=== PATIENT | female | born 1985 | race Caucasian/White ===

== ENCOUNTER → 2016-09-09 | Outpatient (CLI) | payer OTHER ==
[~2016-09-09] MED LIST: ISOVUE-370 76% 100ML VIAL (Q9967) As Ordered ONE
== END ==
LOC: M RAD 13:29
PROVIDERS: ATTEND Physician Assistant
DX: R09.89 Other specified symptoms and signs involving the circulatory and respiratory systems (principal)

== ENCOUNTER → 2016-09-14 | Outpatient (CLI) | payer OTHER ==
[2016-09-14 18:36] LABS: BASO % 0.4 % (0.0-1.0); EOS # 0.2 K/mm3 (0.0-0.50); EOS % 1.3 % (0.0-3.0); LARGE UNSTAINED CELL # 0.3 K/mm3 (0.0-0.4); LARGE UNSTAINED CELL % 1.9 % (0.0-4.0); LYMPH # 4.4 K/mm3 (1.5-4.5); LYMPH % 29.8 % (24.0-44.0); MEAN CORPUSCULAR HEMOGLOBIN 29.2 pg (27.0-33.0); MEAN CORPUSCULAR HGB CONC 32.8 g/dl (32.0-36.5); MEAN CORPUSCULAR VOLUME 89.1 fl (80.0-96.0); MONO # 0.5 K/mm3 (0.0-0.8); MONO % 3.4 % (0.0-5.0); NEUTROPHILS # 8.7 K/mm3 (1.8-7.7); NEUTROPHILS % 63.3 % (36.0-66.0); PLATELET COUNT, AUTOMATED 306 k/mm3 (150-450); RED CELL DISTRIBUTION WIDTH 12.5 % (11.5-14.5); WHITE BLOOD COUNT 13.8 K/mm3 (4.0-10.0)
[2016-09-14 18:50] LABS: ALBUMIN 3.6 GM/DL (3.2-5.2); ALBUMIN/GLOBULIN RATIO 0.84 (1.00-1.93); ALKALINE PHOSPHATASE 61 U/L (45-117); ALT/SGPT 20 U/L (12-78); ANION GAP 9 MEQ/L (8-16); AST/SGOT 16 U/L (15-37); BILIRUBIN,TOTAL 0.3 MG/DL (0.2-1.0); BLOOD UREA NITROGEN 10 MG/DL (7-18); CALCIUM LEVEL 9.5 MG/DL (8.5-10.1); CARBON DIOXIDE LEVEL 25 MEQ/L (21-32); CHLORIDE LEVEL 105 MEQ/L (98-107); CREATININE FOR GFR 1.04 MG/DL (0.55-1.02); GLOMERULAR FILTRATION RATE > 60.0 (>60); GLUCOSE, FASTING 86 MG/DL (70-105); POTASSIUM SERUM 4.2 MEQ/L (3.5-5.1); SODIUM LEVEL 139 MEQ/L (136-145); TOTAL PROTEIN 7.9 GM/DL (6.4-8.2)
== END ==
LOC: M LAB 16:50
PROVIDERS: ATTEND Internal Medicine Gastroenterology
DX: K52.89 Other specified noninfective gastroenteritis and colitis (principal)

== ENCOUNTER → 2016-09-16 | Outpatient (REF) | payer OTHER ==
[~2016-09-16] MED LIST changes: +CLON1TAB PO; +CYCL10TA PO; +CYMB60CA3 PO; -ISOVUE-370 76% 100ML VIAL (Q9967) As Ordered ONE; +LEVO100T5 PO; +LISI-538 PO; +LITH300C PO; +LYRI75CA PO; +NECO1TAB9 PO; +PERC10TA17 PO; +PROP60TA14 PO; +SERO1TAB PO; +XANA1TAB2 PO; +ZOFR20TA PO
== END ==
LOC: M LAB REF 09:29
PROVIDERS: ATTEND Internal Medicine Gastroenterology
DX: R19.8 Other specified symptoms and signs involving the digestive system and abdomen (principal)

== ENCOUNTER → 2016-09-20 | Outpatient (CLI) | payer OTHER, SELFPAY ==
[~2016-09-20] MED LIST changes: +E-Z PAQUE 60% w/v SUSP 355ML BOTTLE As Ordered ONE
--- NOTE | 2016-09-20 11:21 | REP ---
SMALL BOWEL FOLLOW-THROUGH WITH KUB: 09/20/2016 COMPARISON: CT abdomen pelvis 02/18/2016, 07/10/2014 from [facility] in [place]. CLINICAL HISTORY: Crohn's disease for reassessment. FINDINGS: Insulation Estimator film shows SI joints symmetric and normal in appearance. Bones unremarkable. Gas pattern nonspecific. No abnormal calcifications. Oral barium mixture was utilized for single contrast technique. The small bowel loops are contrast filled. At the 10-minute image, barium had reached the region of the distal ileum. There is normal fold thickness throughout the jejunum and no dilated loops, angulated or strictured loops noted in the jejunum. Loops of distal ileum shows slight narrowing, the peristalsis was observed. The terminal ileum shows some narrowing without tight stricture. I see no angulated loops or loop separation. No sign of any fistula tracts between bowel loops. IMPRESSION: 1. Some narrowing terminal ileum without definite loop separation, fold thickness abnormality, nodularity or mass. Transit time to the cecum just under 40 minutes. No evidence of fistulous tract formation. Fluoroscopy time: 2 minutes 5 seconds. Signed by Zachary Han MD 09/20/2016 05:05 P
== END ==
LOC: M RAD 09:16
PROVIDERS: ATTEND Internal Medicine Gastroenterology
DX: K52.89 Other specified noninfective gastroenteritis and colitis (principal)

== ENCOUNTER → 2016-10-06 | Outpatient (CLI) | payer OTHER ==
[~2016-10-06] VITALS: Ht 157.5 cm; Wt 99.8 kg
[~2016-10-06] MED LIST changes: -E-Z PAQUE 60% w/v SUSP 355ML BOTTLE As Ordered ONE; +NS 1,000 ML IV SCH; +PROPOFOL 200 MG/20 ML VIAL As Ordered ONE
[2016-10-06 09:13] VITALS: BP 138/77
--- NOTE | 2016-10-06 10:00 | ROOR ---
Patient Name: Lynn Hedrick Procedure Date: 10/06/2016 9:30 AM Date of : 1985 Age: 31 Room: [id number] Gender: Female Note Status: Finalized Procedure: Colonoscopy Indications: Crohn's disease of the colon, Follow-up of Crohn's disease of the colon, Assess therapeutic response to therapy of Crohn's disease of the colon (on Humira) Providers: Wali FORD MD Referring MD: Jennifer SHI DO Requesting Provider: Medicines: Monitored Anesthesia Care Complications: No immediate complications. Procedure: Pre-Anesthesia Assessment: - The heart rate, respiratory rate, oxygen saturations, blood pressure, adequacy of pulmonary ventilation, and response to care were monitored throughout the procedure. The Colonoscope was introduced through the anus and advanced to 10 cm into the ileum. The colonoscopy was performed without difficulty. The patient tolerated the procedure well. The quality of the bowel preparation was good. Findings: The perianal and digital rectal examinations were normal. (EXAM: Complete, PREP:Adequate) The terminal ileum appeared normal. A diminutive polyp was found in the splenic flexure. The polyp was sessile. The polyp was removed with a jumbo cold forceps. Resection and retrieval were complete. The exam was otherwise without abnormality on direct and retroflexion views. Biopsies were taken with a cold forceps in the rectum, in the sigmoid colon, in the descending colon, in the transverse colon, in the ascending colon and in the terminal ileum for histology. Impression: - The examined portion of the ileum was normal. - One diminutive polyp at the splenic flexure, removed with a jumbo cold forceps. Resected and retrieved. - The examination was otherwise normal on direct and retroflexion views. - Biopsies were taken with a cold forceps for histology in the rectum, in the sigmoid colon, in the descending colon, in the transverse colon, in the ascending colon and in the terminal ileum. - No active Crohn's disease. Crohn's disease in remission. Recommendation: - Return to my office at appointment to be scheduled. - Continue present medications. Continue Humira (adalimumab) at 20 mg per 0.4 mL subcutaneously every other week. Wali Ford MD Wali FORD MD 10/06/2016 9:59:51 AM This report has been signed electronically. Number of Addenda: 0 Note Initiated On: 10/06/2016 9:30 AM Estimated Blood Loss: Estimated blood loss: none.
== END | disposition home or self-care (01) ==
LOC: M OPP 09:02
PROVIDERS: ATTEND Internal Medicine Gastroenterology
DX: K50.10 Crohn's disease of large intestine without complications (principal); D12.3 Benign neoplasm of transverse colon; I10 Essential (primary) hypertension; K21.9 Gastro-esophageal reflux disease without esophagitis; M19.90 Unspecified osteoarthritis, unspecified site; M79.7 Fibromyalgia; E06.3 Autoimmune thyroiditis; F33.9 Major depressive disorder, recurrent, unspecified; F43.10 Post-traumatic stress disorder, unspecified; F17.210 Nicotine dependence, cigarettes, uncomplicated; Z79.899 Other long term (current) drug therapy; Z79.891 Long term (current) use of opiate analgesic; Z88.8 Allergy status to other drugs, medicaments and biological substances; Z88.0 Allergy status to penicillin

== ENCOUNTER → 2016-10-11 | Outpatient (CLI) | payer OTHER ==
[~2016-10-11] MED LIST changes: -NS 1,000 ML IV SCH; -PROPOFOL 200 MG/20 ML VIAL As Ordered ONE
== END ==
LOC: M LAB 09:50
PROVIDERS: ATTEND Internal Medicine Gastroenterology
DX: K52.89 Other specified noninfective gastroenteritis and colitis (principal)

== ENCOUNTER 2016-11-09 12:04 | Emergency (ER) | payer OTHER ==
[~2016-11-09] VITALS: Ht 157.5 cm; Wt 100.2 kg
[~2016-11-09 12:04] MED LIST changes: -HUMI40KI2 SQ; -NORCOTAB PO
[2016-11-09 12:05] VITALS: BP 137/98
[2016-11-09] MEDS ORDERED: HUMI40KI2 SQ (12:14)
[2016-11-09] MEDS ORDERED: NORCOTAB PO (13:48)
[2016-11-28] MEDS ORDERED: LIBR5CAP PO (13:59)
[2016-11-28] MEDS ORDERED: AMBI10TA PO (13:59)
[2016-11-28] MEDS ORDERED: ZOMI5TAB2 PO (13:59)
[2016-11-28] MEDS ORDERED: NECO1TAB PO (13:59)
[2016-11-28] MEDS ORDERED: PANT40TA2 PO (13:59)
[2016-11-28] MEDS ORDERED: BENT10CA PO (13:59)
[2016-11-28] MEDS ORDERED: VITA50003 PO (13:59)
[2016-11-28] MEDS ORDERED: VITA500046 PO (13:59)
[2016-11-28] MEDS ORDERED: BENT20TA PO (13:59)
== END 2016-11-09 13:55 | disposition home or self-care (01) ==
LOC: M ED 13:20
DX: N83.292 Other ovarian cyst, left side (principal); R10.32 Left lower quadrant pain; D39.12 Neoplasm of uncertain behavior of left ovary; F32.9 Major depressive disorder, single episode, unspecified; I10 Essential (primary) hypertension; M54.5 Low back pain; F41.9 Anxiety disorder, unspecified; K50.919 Crohn's disease, unspecified, with unspecified complications; Z79.899 Other long term (current) drug therapy; Z88.0 Allergy status to penicillin; Z88.1 Allergy status to other antibiotic agents

== ENCOUNTER → 2016-11-09 | Outpatient (CLI) | payer OTHER ==
[~2016-11-09] MED LIST changes: +HUMI40KI2 SQ; +NORCOTAB PO
--- NOTE | 2016-11-09 12:11 | REP ---
Clinical: Teratoma. Comparison: CT dated 02/18/2016 . Technique: Transabdominal pelvic ultrasound followed by transvaginal examination for better evaluation of the endometrium and adnexa with color Doppler evaluation of the ovaries. Findings: Bladder is unremarkable and measures 10.5 x 4.7 x 9.5 cm . Heterogeneous anteverted uterus measures 7.0 x 3.8 x 4.1 cm . The endometrial complex measures 9.5 mm thickness. No discrete uterine or endometrial abnormalities are appreciated. Incidental note of multiple Nabothian cysts in the cervix. Bilateral ovaries are normal in appearance and vascularity without evidence for torsion. Right ovary measures 2.6 x 1.2 x 1.8 cm. Left ovary measures 5.3 x 4.5 x 5.3 cm. 4.3 x 3.8 x 3.7 cm fat containing mass in the left adnexa confirmed by prior CT is compatible with dermoid cyst/teratoma. No pelvic fluid. Impression: 1. Left adnexal teratoma measures 4.3 cm maximal diameter. Signed by Porter Shaffer MD 11/09/2016 12:03 P
== END ==
LOC: M RAD 10:49
PROVIDERS: ATTEND Obstetrics & Gynecology
DX: D39.12 Neoplasm of uncertain behavior of left ovary (principal)

== ENCOUNTER → 2016-11-09 | Outpatient (CLI) | payer OTHER ==
[2016-11-09 12:21] LABS: BASO # 0.1 K/mm3 (0.0-0.2); BASO % 0.6 % (0.0-1.0); EOS # 0.2 K/mm3 (0.0-0.50); EOS % 1.6 % (0.0-3.0); LARGE UNSTAINED CELL # 0.4 K/mm3 (0.0-0.4); LARGE UNSTAINED CELL % 2.9 % (0.0-4.0); LYMPH # 5.6 K/mm3 (1.5-4.5); LYMPH % 39.8 % (24.0-44.0); MEAN CORPUSCULAR HEMOGLOBIN 28.1 pg (27.0-33.0); MEAN CORPUSCULAR HGB CONC 32.6 g/dl (32.0-36.5); MEAN CORPUSCULAR VOLUME 86.2 fl (80.0-96.0); MONO # 0.4 K/mm3 (0.0-0.8); MONO % 3.4 % (0.0-5.0); NEUTROPHILS # 6.8 K/mm3 (1.8-7.7); NEUTROPHILS % 51.7 % (36.0-66.0); PLATELET COUNT, AUTOMATED 319 k/mm3 (150-450); RED CELL DISTRIBUTION WIDTH 12.8 % (11.5-14.5)
[2016-11-09 12:38] LABS: WHITE BLOOD COUNT 13.1 K/mm3 (4.0-10.0)
[2016-11-09 12:55] LABS: ALBUMIN 3.5 GM/DL (3.2-5.2); ALBUMIN/GLOBULIN RATIO 0.76 (1.00-1.93); ALKALINE PHOSPHATASE 72 U/L (45-117); ALT/SGPT 19 U/L (12-78); ANION GAP 8 MEQ/L (8-16); AST/SGOT 15 U/L (15-37); BILIRUBIN,TOTAL 0.5 MG/DL (0.2-1.0); BLOOD UREA NITROGEN 11 MG/DL (7-18); CALCIUM LEVEL 9.3 MG/DL (8.5-10.1); CARBON DIOXIDE LEVEL 26 MEQ/L (21-32); CHLORIDE LEVEL 101 MEQ/L (98-107); CREATININE FOR GFR 0.95 MG/DL (0.55-1.02); FREE T4 1.12 NG/DL (0.76-1.46); GLOMERULAR FILTRATION RATE > 60.0 (>60); GLUCOSE, FASTING 78 MG/DL (70-105); POTASSIUM SERUM 4.5 MEQ/L (3.5-5.1); SODIUM LEVEL 135 MEQ/L (136-145); TOTAL PROTEIN 8.1 GM/DL (6.4-8.2)
== END ==
LOC: M LAB 11:48
PROVIDERS: ATTEND Physician Assistant
DX: R53.83 Other fatigue (principal)

== ENCOUNTER → 2016-12-02 | Day surgery (SDC) | payer OTHER ==
[~2016-12-02] VITALS: Ht 157.5 cm; Wt 101.6 kg
[~2016-12-02] MED LIST changes: +AMBI10TA PO; +BENT10CA PO; +BENT20TA PO; +BUPIVACAINE HCL 0.25% 10 ML VIAL As Ordered ONE; +GLYCOPYRROLATE INJ 0.2 MG/ML 2 ML VIAL As Ordered ONE; +HUMI40KI2 SQ; +HYDROmorphone HCL 2 MG/ML 1ML VIAL (J1170) As Ordered ONE; +KETOROLAC 30 MG/ML VIAL (J1885) IV PRN; +KETOROLAC 30 MG/ML VIAL (J1885) IV SCH; +LIBR5CAP PO; +LIDOCAINE 2% INJ 100 MG/5 ML SDV (FOR ANES.) As Ordered ONE; +LR 1,000 ML IV SCH; +MEPERIDINE INJ 25 MG/ML VIAL (J2175) IV PRN; +MIDAZOLAM INJ 2 MG/2 ML VIAL (J2250) As Ordered ONE; +NECO1TAB PO; +NEOSTIGMINE 1MG/ML 5 ML SYRINGE (J2710) As Ordered ONE; +NORCOTAB PO; +ONDANSETRON 4MG/2ML VIAL (J2405) As Ordered ONE; +PANT40TA2 PO; +PERCOCET 5MG/325MG TAB PO PRN; +PROPOFOL 200 MG/20 ML VIAL As Ordered ONE; +ROCURONIUM BROMIDE 50 MG/5 ML VIAL As Ordered ONE; +VITA50003 PO; +VITA500046 PO; +ZOMI5TAB2 PO; +dexameTHASONE 4 MG/ML 1ML VIAL (J1100) As Ordered ONE; +fentaNYL 100 MCG/2 ML INJECTION (J3010) IV PRN; +fentaNYL 250 MCG/5 ML INJECTION (J3010) As Ordered ONE
[2016-12-02 06:51] LABS: MEAN CORPUSCULAR HEMOGLOBIN 27.9 pg (27.0-33.0); MEAN CORPUSCULAR HGB CONC 32.5 g/dl (32.0-36.5); WHITE BLOOD COUNT 10.3 K/mm3 (4.0-10.0)
[2016-12-02 07:03] LABS: CONTROL LINE HCG INT CTR LINE PRESENT
[2016-12-02 12:10] VITALS: BP 114/70
--- NOTE | 2016-12-02 17:40 | RO ---
DATE OF PROCEDURE: 12/02/2016 PREPROCEDURE DIAGNOSIS: Left dermoid cyst. POSTPROCEDURE DIAGNOSIS: Left dermoid cyst. PROCEDURE: 1. Laparoscopic left ovarian cystectomy. 2. Lysis of adhesions. SURGEON: Leilani Siegel MD SENIOR PACKAGING ENGINEER: Edvin Díaz DO ANESTHESIA: General endotracheal anesthesia. ESTIMATED BLOOD LOSS: 5 mL INFECTION CLASSIFICATION: 1. SPECIMEN: Left dermoid cyst. OPERATIVE FINDINGS: Patient with omental adhesion along the umbilicus. Patient with normal appearing uterus and there was approximately a 4 cm left dermoid cyst. The right adnexa, fallopian tube appeared to be adhered to the pelvic sidewall. DESCRIPTION OF PROCEDURE: After informed consent was obtained and written consent was reviewed, the patient was brought to the operating room where general endotracheal anesthesia was obtained. She was then placed in the lithotomy position. A time-out in the operating room was then performed identifying the patient, procedure to be performed, as well as drug allergies. A bivalve speculum was then placed revealing the cervix. The anterior lip of the cervix was grasped with a single-tooth tenaculum. A Hulka tenaculum was then advanced to the cervical os for means to manipulate the uterus and the single-tooth tenaculum as well as the speculum was removed, Francis catheter was placed and was set to gravity. Attention was then turned to the patient's abdomen where 0.25% Marcaine was infused in the infraumbilical area. An incision was made in this area and 11 mm trocar and sleeve was advanced through this incision. The laparoscope was then replaced revealing intraabdominal placement. Two additional ports were placed parallel to the umbilicus. These were infused with 0.25% Marcaine. Incisions were made in these areas and 5 mm trocars and sleeve was advanced through each one of these incisions under direct visualization. The abdomen was then surveyed with the above noted finding. Next, lysis of adhesions was then performed freeing the omentum from the anterior abdominal wall underneath the umbilical region. Next, lysis of adhesions was performed with the Harmonic ELDA scalpel device. Next, when the left ovary was placed on traction using a Harmonic ELDA scalpel device and the cyst wall was open and the dermoid cyst was dissected out of intact. The specimen was then placed in an Endo Catch bag where it was brought to the level of the incision where it was ruptured within the bag. The specimen was then completely brought out the incision and sent to pathology for further evaluation. Surgical sites were inspected and noted to be hemostatic. Next, the fascia of the umbilical port site was then closed using Diogenes-Milton system with an #0 Vicryl suture. Once the fascia port site was closed, pneumoperitoneum was then released, instruments were removed from the patient's abdomen. Three incisions were closed with #4-0 Monocryl and was dressed with Dermabond. The Hulka tenaculum was then taken out. Tenaculum sites were inspected and noted to be hemostatic. Francis catheter was removed. The patient was then taken out of lithotomy position, was awakened from general anesthesia and taken to recovery in stable condition. Counts were correct.
== END | disposition home or self-care (01) ==
LOC: M SDC 06:05
PROVIDERS: ATTEND Obstetrics & Gynecology
DX: D27.1 Benign neoplasm of left ovary (principal); N73.6 Female pelvic peritoneal adhesions (postinfective); E06.3 Autoimmune thyroiditis; I10 Essential (primary) hypertension; K50.90 Crohn's disease, unspecified, without complications; K21.9 Gastro-esophageal reflux disease without esophagitis; R29.898 Other symptoms and signs involving the musculoskeletal system; M12.9 Arthropathy, unspecified; M54.9 Dorsalgia, unspecified; F41.9 Anxiety disorder, unspecified; F32.9 Major depressive disorder, single episode, unspecified; G43.909 Migraine, unspecified, not intractable, without status migrainosus; F43.10 Post-traumatic stress disorder, unspecified; R06.83 Snoring; E66.9 Obesity, unspecified; F17.210 Nicotine dependence, cigarettes, uncomplicated; Z88.0 Allergy status to penicillin; Z88.1 Allergy status to other antibiotic agents; Z79.899 Other long term (current) drug therapy
CPT/HCPCS: 36415; 58662; 84703; 85027; 86850; 86900; 86901; 88305; J1100; J1170; J2250; J2405; J2710; J3010

== ENCOUNTER → 2017-02-23 | Outpatient (REF) | payer OTHER ==
[~2017-02-23] MED LIST changes: -BUPIVACAINE HCL 0.25% 10 ML VIAL As Ordered ONE; -GLYCOPYRROLATE INJ 0.2 MG/ML 2 ML VIAL As Ordered ONE; -HYDROmorphone HCL 2 MG/ML 1ML VIAL (J1170) As Ordered ONE; -KETOROLAC 30 MG/ML VIAL (J1885) IV PRN; -KETOROLAC 30 MG/ML VIAL (J1885) IV SCH; -LIDOCAINE 2% INJ 100 MG/5 ML SDV (FOR ANES.) As Ordered ONE; -LR 1,000 ML IV SCH; -MEPERIDINE INJ 25 MG/ML VIAL (J2175) IV PRN; -MIDAZOLAM INJ 2 MG/2 ML VIAL (J2250) As Ordered ONE; -NEOSTIGMINE 1MG/ML 5 ML SYRINGE (J2710) As Ordered ONE; -ONDANSETRON 4MG/2ML VIAL (J2405) As Ordered ONE; -PERC10TA17 PO; +PERC10TA26 PO; -PERCOCET 5MG/325MG TAB PO PRN; +PERCOCET PO; -PROPOFOL 200 MG/20 ML VIAL As Ordered ONE; -ROCURONIUM BROMIDE 50 MG/5 ML VIAL As Ordered ONE; +VITA1CAP40 PO; -VITA50003 PO; -dexameTHASONE 4 MG/ML 1ML VIAL (J1100) As Ordered ONE; -fentaNYL 100 MCG/2 ML INJECTION (J3010) IV PRN; -fentaNYL 250 MCG/5 ML INJECTION (J3010) As Ordered ONE
[2017-02-23 14:39] LABS: VITAMIN B12 LEVEL 400 PG/ML
[2017-02-23 14:40] LABS: FOLATE 16.6 NG/ML
[2017-02-23 14:56] LABS: ALBUMIN 3.3 GM/DL (3.2-5.2); ALBUMIN/GLOBULIN RATIO 0.72 (1.00-1.93); ALKALINE PHOSPHATASE 80 U/L (45-117); ALT/SGPT 56 U/L (12-78); ANION GAP 11 MEQ/L (8-16); AST/SGOT 75 U/L (15-37); BILIRUBIN,TOTAL 0.3 MG/DL (0.2-1.0); BLOOD UREA NITROGEN 10 MG/DL (7-18); CALCIUM LEVEL 9.2 MG/DL (8.5-10.1); CARBON DIOXIDE LEVEL 25 MEQ/L (21-32); CHLORIDE LEVEL 104 MEQ/L (98-107); CREATININE FOR GFR 0.96 MG/DL (0.55-1.02); GLOMERULAR FILTRATION RATE > 60.0 (>60); GLUCOSE, FASTING 88 MG/DL (70-105); POTASSIUM SERUM 4.2 MEQ/L (3.5-5.1); SODIUM LEVEL 140 MEQ/L (136-145); TOTAL PROTEIN 7.9 GM/DL (6.4-8.2)
[2017-02-23 15:19] LABS: BASO % 0.3 % (0.0-1.0); EOS # 0.2 K/mm3 (0.0-0.50); EOS % 2.4 % (0.0-3.0); LARGE UNSTAINED CELL # 0.2 K/mm3 (0.0-0.4); LARGE UNSTAINED CELL % 2.7 % (0.0-4.0); LYMPH % 36.4 % (24.0-44.0); MEAN CORPUSCULAR HGB CONC 33.7 g/dl (32.0-36.5); MEAN CORPUSCULAR VOLUME 86.1 fl (80.0-96.0); MONO # 0.4 K/mm3 (0.0-0.8); MONO % 4.1 % (0.0-5.0); NEUTROPHILS # 4.5 K/mm3 (1.8-7.7); NEUTROPHILS % 54.1 % (36.0-66.0); PLATELET COUNT, AUTOMATED 260 k/mm3 (150-450); RED CELL DISTRIBUTION WIDTH 14.3 % (11.5-14.5); WHITE BLOOD COUNT 8.4 K/mm3 (4.0-10.0)
[2017-02-23 19:03] LABS: ERYTHROCYTE SEDIMENTATION RATE 43 mm/hr (0-20)
[2017-02-27 08:10] LABS: VITAMIN E LEVEL 13.1 mg/L (5.3-16.8)
== END ==
LOC: M LABNEURO 09:55
PROVIDERS: ATTEND Psychiatry & Neurology Neurology
DX: R29.6 Repeated falls (principal); R26.81 Unsteadiness on feet

== ENCOUNTER → 2017-07-13 | Outpatient (REF) | payer OTHER ==
[2017-07-13 14:04] LABS: BASO # 0.1 10^3/uL (0.0-0.2); BASO % 0.7 % (0.0-1.0); EOS # 0.3 10^3/uL (0.0-0.50); EOS % 2.1 % (0.0-3.0); HEMOGLOBIN 13.7 g/dl (12.0-16.0); IMMATURE GRANULOCYTE % 0.3 % (0-0); LYMPH # 3.6 10^3/uL (1.5-4.5); LYMPH % 30.8 % (24.0-44.0); MEAN CORPUSCULAR HEMOGLOBIN 29.9 pg (27.0-33.0); MEAN CORPUSCULAR HGB CONC 31.9 g/dl (32.0-36.5); MEAN CORPUSCULAR VOLUME 93.9 fl (80.0-96.0); MONO # 0.7 10^3/uL (0.0-0.8); MONO % 5.7 % (0.0-5.0); NEUTROPHILS # 7.1 10^3/uL (1.8-7.7); NEUTROPHILS % 60.4 % (36.0-66.0); PLATELET COUNT, AUTOMATED 266 10^3/uL (150-450); RED BLOOD COUNT 4.58 10^6/uL (4.00-5.40); WHITE BLOOD COUNT 11.7 10^3/uL (4.0-10.0)
[2017-07-13 14:34] LABS: ALBUMIN 3.9 GM/DL (3.2-5.2); ALBUMIN/GLOBULIN RATIO 0.87 (1.00-1.93); ALKALINE PHOSPHATASE 98 U/L (45-117); ALT/SGPT 214 U/L (12-78); ANION GAP 6 MEQ/L (8-16); AST/SGOT 185 U/L (7-37); BILIRUBIN,TOTAL 0.4 MG/DL (0.2-1.0); BLOOD UREA NITROGEN 9 MG/DL (7-18); C REACTIVE PROTEIN QUANTITATIV 1.66 MG/DL (0.00-0.30); CALCIUM LEVEL 9.6 MG/DL (8.5-10.1); CARBON DIOXIDE LEVEL 29 MEQ/L (21-32); CHLORIDE LEVEL 103 MEQ/L (98-107); CREATININE FOR GFR 0.86 MG/DL (0.55-1.02); GLOMERULAR FILTRATION RATE > 60.0 (>60); GLUCOSE, FASTING 84 MG/DL (70-105); IMMUNOGLOBULIN G 1640 MG/DL (681-1648); IMMUNOGLOBULIN M 204 MG/DL (40-230); POTASSIUM SERUM 4.7 MEQ/L (3.5-5.1); SODIUM LEVEL 138 MEQ/L (136-145); TOTAL PROTEIN 8.4 GM/DL (6.4-8.2)
[2017-07-16 08:06] LABS: IgG SERUM (part of Subclasses) 1696 mg/dL (700-1600); IgG Subclass 1 528 mg/dL (248-810); IgG Subclass 2 256 mg/dL (130-555); IgG Subclass 3 53 mg/dL (15-102); IgG Subclass 4 15 mg/dL (2-96)
== END ==
LOC: M SFHCPLAZ 10:53
DX: J18.1 Lobar pneumonia, unspecified organism (principal)
CPT/HCPCS: 80053

== ENCOUNTER → 2017-07-31 | Outpatient (CLI) | payer OTHER ==
[2017-07-31 09:53] LABS: INR 1.04; PROTHROMBIN TIME 13.7 SECONDS (12.4-14.5)
[2017-07-31 10:33] LABS: ALBUMIN 3.7 GM/DL (3.2-5.2); ALBUMIN/GLOBULIN RATIO 0.77 (1.00-1.93); ALKALINE PHOSPHATASE 102 U/L (45-117); ALT/SGPT 215 U/L (12-78); AST/SGOT 179 U/L (7-37); BILIRUBIN,DIRECT 0.2 MG/DL (0.0-0.2); BILIRUBIN,TOTAL 0.4 MG/DL (0.2-1.0); GAMMA GLUTAMYLTRANSPEPTIDASE 95 U/L (5-55); IRON (FE) 44 UG/DL (50-170); PERCENT SATURATION 13.1 % (13.2-45.0); TOTAL IRON BINDING CAPACITY 337 UG/DL (250-450); TOTAL PROTEIN 8.5 GM/DL (6.4-8.2)
[2017-07-31 10:55] LABS: HEPATITIS B SURFACE ANTIGEN NEGATIVE (NEGATIVE)
[2017-07-31 11:22] LABS: HEPATITIS B CORE ANTIBODY IGM NEGATIVE (NEGATIVE)
[2017-07-31 11:24] LABS: HEPATITIS A ANTIBODY IGM NEGATIVE (NEGATIVE)
[2017-08-04 14:11] LABS: ANCA-ATYPICAL <1:20 titer (Neg:<1:20); ANTI-MITOCHONDRIAL ANTIBODY 3.1 Units (0.0-20.0); ANTINUCLEAR ANTIBODIES DIRECT Negative (Negative); CYTOPLASMIC NEUTROP AB ANCA-C <1:20 titer (Neg:<1:20); LIVER-KIDNEY MICROSOMAL ABY 0.8 Units (0.0-20.0); PERINUCLEAR AB ANCA-P <1:20 titer (Neg:<1:20)
== END ==
LOC: M RAD 08:09
DX: R94.5 Abnormal results of liver function studies (principal); K50.10 Crohn's disease of large intestine without complications; K76.0 Fatty (change of) liver, not elsewhere classified; J06.9 Acute upper respiratory infection, unspecified
CPT/HCPCS: 76705

== ENCOUNTER → 2017-07-31 | Outpatient (REF) | payer OTHER ==
[2017-07-31 14:22] LABS: INFLUENZA A AMPLIFICATION NEGATIVE (NEGATIVE); INFLUENZA B AMPLIFICATION NEGATIVE (NEGATIVE)
== END ==
LOC: M LAB REF 13:12
DX: J06.9 Acute upper respiratory infection, unspecified (principal)

== ENCOUNTER → 2017-08-07 | Outpatient (CLI) | payer OTHER | LOC: M SMT 12:12 | DX: J18.1 Lobar pneumonia, unspecified organism (principal) ==

== ENCOUNTER → 2017-08-10 | Outpatient (REF) | payer OTHER ==
[2017-08-10 15:59] LABS: CHOLESTEROL LEVEL 199 MG/DL (<200); CHOLESTEROL RISK RATIO 5.685 (<5); FERRITIN 294 NG/ML (8-252); HDL CHOLESTEROL 35 MG/DL (>40); NON-HDL-C 164 MG/DL; TRIGLYCERIDES LEVEL 215 MG/DL (<150)
[2017-08-10 16:02] LABS: ESTIMATED AVERAGE GLUCOSE 105 MG/DL (60-110); HEMOGLOBIN A1c 5.3 %
== END ==
LOC: M SFHCPLAZ 11:49
DX: K76.0 Fatty (change of) liver, not elsewhere classified (principal); J18.1 Lobar pneumonia, unspecified organism

== ENCOUNTER → 2017-09-01 | Outpatient (CLI) | payer OTHER ==
[2017-09-01 11:20] LABS: BASO # 0.1 10^3/uL (0.0-0.2); BASO % 0.6 % (0.0-1.0); EOS # 0.2 10^3/uL (0.0-0.50); EOS % 1.6 % (0.0-3.0); HEMATOCRIT 41.6 % (36.0-47.0); IMMATURE GRANULOCYTE % 0.2 % (0-3.0); LYMPH # 3.1 10^3/uL (1.5-4.5); LYMPH % 29.6 % (24.0-44.0); MEAN CORPUSCULAR HGB CONC 33.7 g/dl (32.0-36.5); MONO # 0.5 10^3/uL (0.0-0.8); NEUTROPHILS # 6.7 10^3/uL (1.8-7.7); PLATELET COUNT, AUTOMATED 223 10^3/uL (150-450); RED BLOOD COUNT 4.52 10^6/uL (4.00-5.40); RED CELL DISTRIBUTION WIDTH 12.6 % (11.5-14.5); WHITE BLOOD COUNT 10.6 10^3/uL (4.0-10.0)
[2017-09-01 11:30] LABS: INR 1.12; PROTHROMBIN TIME 14.6 SECONDS (12.4-14.5)
[2017-09-01 11:31] LABS: PARTIAL THROMBOPLASTIN TIME 29.3 SECONDS (26.8-37.9)
[2017-09-01 11:56] LABS: ALBUMIN 3.7 GM/DL (3.2-5.2); ALKALINE PHOSPHATASE 81 U/L (45-117); ALT/SGPT 200 U/L (12-78); AST/SGOT 114 U/L (7-37); BILIRUBIN,DIRECT 0.1 MG/DL (0.0-0.2); BILIRUBIN,TOTAL 0.4 MG/DL (0.2-1.0); TOTAL PROTEIN 8.3 GM/DL (6.4-8.2)
== END ==
LOC: M LAB 10:47
DX: R94.5 Abnormal results of liver function studies (principal)

== ENCOUNTER → 2017-09-06 | Outpatient (CLI) | payer OTHER ==
[~2017-09-06] MED LIST changes: +ACETAMINOPHEN 325 MG TAB As Ordered; -AMBI10TA PO; -BENT10CA PO; -BENT20TA PO; -CLON1TAB PO; -CYCL10TA PO; -CYMB60CA3 PO; -HUMI40KI2 SQ; -LEVO100T5 PO; -LIBR5CAP PO; +LIDOCAINE 1% MDV 20ML VIAL As Ordered; -LISI-538 PO; -LITH300C PO; -LYRI75CA PO; -NECO1TAB PO; -NECO1TAB9 PO; -NORCOTAB PO; -PANT40TA2 PO; -PERC10TA26 PO; -PERCOCET PO; -PROP60TA14 PO; -SERO1TAB PO; -VITA1CAP40 PO; -VITA500046 PO; -XANA1TAB2 PO; -ZOFR20TA PO; -ZOMI5TAB2 PO
== END ==
LOC: M RADPRO 09:18
DX: K76.2 Central hemorrhagic necrosis of liver (principal); R94.5 Abnormal results of liver function studies; I10 Essential (primary) hypertension; M79.7 Fibromyalgia; K50.90 Crohn's disease, unspecified, without complications; F41.9 Anxiety disorder, unspecified; F17.210 Nicotine dependence, cigarettes, uncomplicated; Z79.899 Other long term (current) drug therapy; Z88.0 Allergy status to penicillin; Z88.8 Allergy status to other drugs, medicaments and biological substances
CPT/HCPCS: 47000

== ENCOUNTER 2017-10-27 15:17 | Outpatient (CLI) | payer OTHER ==
[2017-10-27] MEDS: VEDOLIZUMAB 300 MG in NS 250 ML IV (15:45)
== END 2017-10-27 17:30 | disposition home or self-care (01) ==
LOC: M INFU 15:17
DX: K50.90 Crohn's disease, unspecified, without complications (principal); I10 Essential (primary) hypertension; M79.7 Fibromyalgia; F17.210 Nicotine dependence, cigarettes, uncomplicated; F41.9 Anxiety disorder, unspecified; Z79.899 Other long term (current) drug therapy; Z79.891 Long term (current) use of opiate analgesic; Z88.0 Allergy status to penicillin; Z88.8 Allergy status to other drugs, medicaments and biological substances
CPT/HCPCS: J3380

== ENCOUNTER 2017-11-10 14:37 | Outpatient (CLI) | payer OTHER ==
[2017-11-10] MEDS: VEDOLIZUMAB 300 MG in NS 250 ML IV (15:09)
== END 2017-11-10 16:00 | disposition home or self-care (01) ==
LOC: M INFU 14:37
DX: K50.90 Crohn's disease, unspecified, without complications (principal); I10 Essential (primary) hypertension; M79.7 Fibromyalgia; Z79.891 Long term (current) use of opiate analgesic; Z79.899 Other long term (current) drug therapy; Z88.0 Allergy status to penicillin; Z88.8 Allergy status to other drugs, medicaments and biological substances
CPT/HCPCS: J3380

== ENCOUNTER → 2017-11-22 | Outpatient (CLI) | payer OTHER ==
[2017-11-22 12:17] LABS: ALBUMIN 3.5 GM/DL (3.2-5.2); ALBUMIN/GLOBULIN RATIO 0.71 (1.00-1.93); ALKALINE PHOSPHATASE 137 U/L (45-117); ALT/SGPT 70 U/L (12-78); AST/SGOT 60 U/L (7-37); BILIRUBIN,DIRECT 0.1 MG/DL (0.0-0.2); BILIRUBIN,TOTAL 0.4 MG/DL (0.2-1.0); TOTAL PROTEIN 8.4 GM/DL (6.4-8.2)
[2017-11-22 12:28] LABS: HEPATITIS B SURFACE ANTIGEN NEGATIVE (NEGATIVE)
[2017-11-25 08:06] LABS: QUANTIFERON GOLD TB Negative (Negative); TB Test (QFT) Antigen 0.03 IU/mL (.); TB Test (QFT) Antigen Minus Ni <0.01 IU/mL (.); TB Test (QFT) Mitogen 6.62 IU/mL (.); TB Test (QFT) Nil 0.04 IU/mL (.)
== END ==
LOC: M LAB 10:56
DX: K50.10 Crohn's disease of large intestine without complications (principal)
CPT/HCPCS: 80178

== ENCOUNTER → 2017-11-22 | Outpatient (CLI) | payer OTHER ==
[2017-11-22 12:52] LABS: LITHIUM LEVEL 0.21 MEQ/L (0.60-1.20)
== END ==
LOC: M LAB 10:59
DX: F31.30 Bipolar disorder, current episode depressed, mild or moderate severity, unspecified (principal)

== ENCOUNTER 2017-12-08 12:18 | Outpatient (CLI) | payer OTHER ==
[2017-12-08] MEDS: VEDOLIZUMAB 300 MG in NS 250 ML IV (12:38)
== END 2017-12-08 13:30 | disposition home or self-care (01) ==
LOC: M INFU 12:18
DX: K50.90 Crohn's disease, unspecified, without complications (principal); I10 Essential (primary) hypertension; M79.7 Fibromyalgia; F17.210 Nicotine dependence, cigarettes, uncomplicated; Z79.891 Long term (current) use of opiate analgesic; Z79.899 Other long term (current) drug therapy; Z88.0 Allergy status to penicillin; Z88.8 Allergy status to other drugs, medicaments and biological substances
CPT/HCPCS: J3380

== ENCOUNTER 2018-02-02 15:08 | Outpatient (CLI) | payer OTHER ==
[2018-02-02] MEDS: VEDOLIZUMAB 300 MG in NS 250 ML IV (15:32)
== END 2018-02-02 16:15 | disposition home or self-care (01) ==
LOC: M INFU 15:08
DX: K50.90 Crohn's disease, unspecified, without complications (principal); Z88.1 Allergy status to other antibiotic agents; Z88.0 Allergy status to penicillin; Z79.899 Other long term (current) drug therapy
CPT/HCPCS: J3380

== ENCOUNTER 2018-04-09 07:08 | Outpatient (CLI) | payer OTHER ==
[2018-04-09] MEDS: VEDOLIZUMAB 300 MG in NS 250 ML IV (08:06)
== END 2018-04-09 08:45 | disposition home or self-care (01) ==
LOC: M INFU 07:08
DX: K50.90 Crohn's disease, unspecified, without complications (principal); Z88.8 Allergy status to other drugs, medicaments and biological substances; Z88.0 Allergy status to penicillin; Z88.1 Allergy status to other antibiotic agents
CPT/HCPCS: J3380

== ENCOUNTER → 2018-05-07 | Outpatient (CLI) | payer OTHER ==
[2018-05-07 07:34] LABS: BASO # 0.1 10^3/uL (0.0-0.2); BASO % 0.6 % (0.0-1.0); EOS # 0.4 10^3/uL (0.0-0.50); EOS % 3.3 % (0.0-3.0); HEMATOCRIT 42.5 % (36.0-47.0); HEMOGLOBIN 13.9 g/dl (12.0-15.5); IMMATURE GRANULOCYTE % 0.2 % (0-3.0); LYMPH # 4.2 10^3/uL (1.5-4.5); LYMPH % 34.5 % (24.0-44.0); MEAN CORPUSCULAR HEMOGLOBIN 30.1 pg (27.0-33.0); MEAN CORPUSCULAR HGB CONC 32.7 g/dl (32.0-36.5); MONO # 0.5 10^3/uL (0.0-0.8); MONO % 4.3 % (0.0-5.0); NEUTROPHILS % 57.1 % (36.0-66.0); PLATELET COUNT, AUTOMATED 231 10^3/uL (150-450); RED BLOOD COUNT 4.62 10^6/uL (4.00-5.40); RED CELL DISTRIBUTION WIDTH 12.8 % (11.5-14.5); WHITE BLOOD COUNT 12.2 10^3/uL (4.0-10.0)
[2018-05-07 08:06] LABS: ALBUMIN 3.3 GM/DL (3.2-5.2); ALBUMIN/GLOBULIN RATIO 0.77 (1.00-1.93); ALKALINE PHOSPHATASE 96 U/L (45-117); ALT/SGPT 90 U/L (12-78); ANION GAP 7 MEQ/L (8-16); AST/SGOT 58 U/L (7-37); BILIRUBIN,TOTAL 0.3 MG/DL (0.2-1.0); BLOOD UREA NITROGEN 9 MG/DL (7-18); C REACTIVE PROTEIN QUANTITATIV 0.91 MG/DL (0.00-0.30); CALCIUM LEVEL 8.7 MG/DL (8.5-10.1); CARBON DIOXIDE LEVEL 24 MEQ/L (21-32); CHLORIDE LEVEL 109 MEQ/L (98-107); CREATININE FOR GFR 1.06 MG/DL (0.55-1.30); GLOMERULAR FILTRATION RATE > 60.0 (>60); GLUCOSE, FASTING 96 MG/DL (70-100); LIPASE 155 U/L (73-393); POTASSIUM SERUM 4.4 MEQ/L (3.5-5.1); SODIUM LEVEL 140 MEQ/L (136-145); TOTAL PROTEIN 7.6 GM/DL (6.4-8.2)
== END ==
LOC: M RAD 07:04
DX: R10.811 Right upper quadrant abdominal tenderness (principal)
CPT/HCPCS: 76705

== ENCOUNTER 2018-05-25 09:32 | Outpatient (CLI) | payer OTHER ==
[2018-05-25] MEDS: VEDOLIZUMAB 300 MG in NS 250 ML IV (10:04)
== END 2018-05-25 10:45 | disposition home or self-care (01) ==
LOC: M INFU 09:32
DX: K50.90 Crohn's disease, unspecified, without complications (principal); Z79.891 Long term (current) use of opiate analgesic; Z79.899 Other long term (current) drug therapy; Z88.8 Allergy status to other drugs, medicaments and biological substances; Z88.0 Allergy status to penicillin
CPT/HCPCS: J3380

== ENCOUNTER → 2018-05-29 | Outpatient (CLI) | payer OTHER ==
[2018-05-29 12:29] LABS: FREE T4 0.85 NG/DL (0.76-1.46)
[2018-05-29 12:55] LABS: VITAMIN B12 LEVEL 445 PG/ML (247-911)
[2018-06-01 08:06] LABS: DEHYDROEPIANDROSTERONE UNCONJ 94 ng/dL (31-701)
== END ==
LOC: M LAB 11:15
DX: L65.9 Nonscarring hair loss, unspecified (principal); F45.8 Other somatoform disorders
CPT/HCPCS: 84443

== ENCOUNTER 2018-07-20 09:25 | Outpatient (CLI) | payer OTHER ==
[~2018-07-20] VITALS: Ht 157.5 cm; Wt 101.8 kg
[~2018-07-20 09:25] MED LIST changes: -ACETAMINOPHEN 325 MG TAB As Ordered; +AMBI10TA PO; +BENT10CA PO; +BENT20TA PO; +CLON1TAB8 PO; +CYCL10TA PO; +CYMB60CA3 PO; +HUMI40KI2 SQ; +LEVO100T5 PO; +LIBR5CAP PO; -LIDOCAINE 1% MDV 20ML VIAL As Ordered; +LISI-538 PO; +LITH300C PO; +LYRI75CA PO; +NECO1TAB PO; +NECO1TAB2 PO; +NORCOTAB PO; +PANT40TA3 PO; +PERC10TA26 PO; +PERCOCET PO; +PROP60TA14 PO; +SERO1TAB PO; +VITA500046 PO; +VITA50005 PO; +XANA1TAB2 PO; +ZOFR4TAB16 PO; +ZOMI5TAB2 PO
[2018-07-20 09:30] VITALS: BP 149/76
[2018-07-20] MEDS ORDERED: VEDOLIZUMAB 300 MG in NS 250 ML IV ONE (10:00)
[2018-07-20 11:14] VITALS: BP 146/85
== END 2018-07-20 11:15 | disposition home or self-care (01) ==
LOC: M INFU 09:25
PROVIDERS: ATTEND Internal Medicine Gastroenterology
DX: K50.90 Crohn's disease, unspecified, without complications (principal); Z88.1 Allergy status to other antibiotic agents; Z88.8 Allergy status to other drugs, medicaments and biological substances
CPT/HCPCS: 96365; J3380

== ENCOUNTER 2018-09-14 09:52 | Outpatient (CLI) | payer OTHER ==
[~2018-09-14] VITALS: Ht 157.5 cm; Wt 101.8 kg
[2018-09-14 10:32] VITALS: BP 126/79
[2018-09-14] MEDS ORDERED: VEDOLIZUMAB 300 MG in NS 250 ML IV ONE (10:45)
[2018-09-14 12:00] VITALS: BP 110/73
== END 2018-09-14 12:00 | disposition home or self-care (01) ==
LOC: M INFU 09:52
PROVIDERS: ATTEND Internal Medicine Gastroenterology
DX: K50.90 Crohn's disease, unspecified, without complications (principal)
CPT/HCPCS: 96365; J3380

== ENCOUNTER 2018-11-09 10:07 | Outpatient (CLI) | payer OTHER ==
[~2018-11-09] VITALS: Ht 156.5 cm; Wt 101.8 kg
[~2018-11-09 10:07] MED LIST changes: +HYDR-3715 PO; -NORCOTAB PO
[2018-11-09 10:15] VITALS: BP 124/71
[2018-11-09] MEDS ORDERED: VEDOLIZUMAB 300 MG in NS 250 ML IV ONE (10:30)
[2018-11-09 11:30] VITALS: BP 108/56
== END 2018-11-09 11:55 | disposition home or self-care (01) ==
LOC: M INFU 10:07
PROVIDERS: ATTEND Internal Medicine Gastroenterology
DX: K50.90 Crohn's disease, unspecified, without complications (principal); Z88.8 Allergy status to other drugs, medicaments and biological substances; Z88.0 Allergy status to penicillin; Z88.1 Allergy status to other antibiotic agents
CPT/HCPCS: 96365; J3380

== ENCOUNTER 2019-01-04 09:37 | Outpatient (CLI) | payer OTHER ==
[~2019-01-04] VITALS: Ht 157.5 cm; Wt 104.3 kg
[2019-01-04 09:40] VITALS: BP 139/75
[2019-01-04] MEDS ORDERED: VEDOLIZUMAB 300 MG in NS 250 ML IV ONE (10:00)
[2019-01-04 11:05] VITALS: BP 121/71
== END 2019-01-04 11:15 | disposition home or self-care (01) ==
LOC: M INFU 09:37
PROVIDERS: ATTEND Internal Medicine Gastroenterology
DX: K50.90 Crohn's disease, unspecified, without complications (principal); Z88.0 Allergy status to penicillin; Z88.1 Allergy status to other antibiotic agents; Z88.8 Allergy status to other drugs, medicaments and biological substances; Z11.9 Encounter for screening for infectious and parasitic diseases, unspecified; W57.XXXA Bitten or stung by nonvenomous insect and other nonvenomous arthropods, initial encounter
CPT/HCPCS: 36415; 86617; 96365; J3380

== ENCOUNTER → 2019-01-04 | Outpatient (CLI) | payer OTHER ==
[2019-01-06 00:06] LABS: Lyme Disease IgG/IgM Antibodie <0.91 ISR (0.00-0.90); Lyme Disease IgM Ab Quantitati <0.80 index (0.00-0.79)
== END ==
LOC: M LAB 09:23 → M RAD 09:23
PROVIDERS: ATTEND Physician Assistant
DX: Z11.9 Encounter for screening for infectious and parasitic diseases, unspecified (principal); W57.XXXA Bitten or stung by nonvenomous insect and other nonvenomous arthropods, initial encounter

== ENCOUNTER → 2019-02-14 | Outpatient (CLI) | payer OTHER ==
[2019-02-14 22:01] LABS: ALBUMIN 2.9 GM/DL (3.2-5.2); ALT/SGPT 13 U/L (12-78); BILIRUBIN,DIRECT 0.1 MG/DL (0.0-0.2); BILIRUBIN,TOTAL 0.2 MG/DL (0.2-1.0); TOTAL PROTEIN 6.6 GM/DL (6.4-8.2)
[2019-02-15 09:51] LABS: HEPATITIS B SURFACE ANTIBODY POSITIVE (POSITIVE)
== END ==
LOC: M LAB 17:38
PROVIDERS: ATTEND Internal Medicine Gastroenterology
DX: K50.10 Crohn's disease of large intestine without complications (principal)

== ENCOUNTER → 2019-02-14 | Outpatient (CLI) | payer OTHER ==
[~2019-02-14] MED LIST changes: +ASPI81TA85 PO; +CYMB1CAP5 PO; +DOCU100C16 PO; +ENTY1INJ IV; +IBUP80TA PO; +LABE100T36 PO; +LABE200T32 PO; +LEVO137T2 PO; +PRENTAB9 PO; +XANA2TAB2 PO
[2019-02-14 19:54] LABS: BASO % 0.3 % (0.0-1.0); EOS # 0.2 10^3/uL (0.0-0.50); EOS % 1.7 % (0.0-3.0); HEMATOCRIT 33.5 % (36.0-47.0); HEMOGLOBIN 11.5 g/dl (12.0-15.5); LYMPH # 2.8 10^3/uL (1.5-4.5); LYMPH % 24.7 % (24.0-44.0); MEAN CORPUSCULAR HEMOGLOBIN 31.5 pg (27.0-33.0); MEAN CORPUSCULAR HGB CONC 34.3 g/dl (32.0-36.5); MEAN CORPUSCULAR VOLUME 91.8 fl (80.0-96.0); MONO # 0.4 10^3/uL (0.0-0.8); MONO % 3.9 % (0.0-5.0); NEUTROPHILS # 7.8 10^3/uL (1.8-7.7); PLATELET COUNT, AUTOMATED 222 10^3/uL (150-450); RED BLOOD COUNT 3.65 10^6/uL (4.00-5.40); WHITE BLOOD COUNT 11.3 10^3/uL (4.0-10.0)
[2019-02-14 20:17] LABS: TOTAL PROTEIN,RANDOM URINE 31.3 MG/DL (0.0-12.0)
[2019-02-14 20:19] LABS: ALT/SGPT 14 U/L (12-78); BILIRUBIN,TOTAL 0.1 MG/DL (0.2-1.0); CREATININE FOR GFR 0.65 MG/DL (0.55-1.30); GLOMERULAR FILTRATION RATE > 60.0 (>60); GLUCOSE CHALLENGE TEST 1 HOUR 127 MG/DL (LESS THAN 140); LDH LACTATE DEHYDROGENASE 133 U/L (84-246); URIC ACID 3.5 MG/DL (2.6-6.0)
[2019-02-14 21:46] LABS: CHLAMYDIA DNA AMPLIFICATION NEGATIVE (NEGATIVE); GC DNA AMPLIFICATION NEGATIVE (NEGATIVE)
[2019-02-15 09:53] LABS: RUBELLA IgG QUALITATIVE IMMUNE (IMMUNE)
[2019-02-15 10:21] LABS: HEPATITIS C VIRUS ABY INDEX < 0.0 INDEX (<0.8)
[2019-02-15 10:22] LABS: HIV 1&2 SCREEN CENTAUR NEGATIVE (NEGATIVE)
== END ==
LOC: M LAB 17:34
PROVIDERS: ATTEND Obstetrics & Gynecology
DX: Z36.89 Encounter for other specified antenatal screening (principal); K50.10 Crohn's disease of large intestine without complications

== ENCOUNTER 2019-03-01 09:31 | Outpatient (CLI) | payer OTHER ==
[~2019-03-01] VITALS: Ht 157.5 cm; Wt 104.5 kg
[~2019-03-01 09:31] MED LIST changes: -ASPI81TA85 PO; -CYMB1CAP5 PO; -DOCU100C16 PO; -ENTY1INJ IV; -IBUP80TA PO; -LABE100T36 PO; -LABE200T32 PO; -LEVO137T2 PO; -PRENTAB9 PO; -XANA2TAB2 PO
[2019-03-01 09:34] VITALS: BP 125/86
[2019-03-01] MEDS ORDERED: VEDOLIZUMAB 300 MG in NS 250 ML IV ONE (10:00)
[2019-03-01 10:30] VITALS: BP 125/84
== END 2019-03-01 10:45 | disposition home or self-care (01) ==
LOC: M INFU 09:31
PROVIDERS: ATTEND Internal Medicine Gastroenterology
DX: K50.90 Crohn's disease, unspecified, without complications (principal); Z88.0 Allergy status to penicillin; Z88.8 Allergy status to other drugs, medicaments and biological substances
CPT/HCPCS: 96365; J3380

== ENCOUNTER → 2019-03-06 | Outpatient (CLI) | payer OTHER ==
--- NOTE | 2019-03-06 15:26 | REP ---
OB ULTRASOUND: Real-time sonographic evaluation of the gravid uterus performed utilizing transabdominal and endovaginal technique. There is a single living intrauterine gestation with an estimated gestational age 20 weeks 3 days. EDC 07/21/2019. Today's measurements indicate appropriate growth. Biometry and Growth: BPD 50 mm = 21 weeks 0 days, 63rd percentile HC 175 mm = 20 weeks 0 days, 35th percentile AC 160 mm = 21 weeks 1 day, 64th percentile FL 33 mm = 20 weeks 1 day, 42nd percentile HC/AC ratio Estimated weight 368 grams, 52nd percentile. SEEN/GROSSLY UNREMARKABLE Lateral ventricles Yes Posterior fossa Yes Upper lip Yes Four-chamber heart No LVOT Yes RVOT Yes Stomach Yes Cord insertion Yes Three vessel cord Yes Kidneys Yes Bladder Yes Spine No Cervical length: Closed and measures 3.3 cm in length. heart rate: 155 beats per minute. position: Variable. Placenta: Anterior and grade 0 with no previa or abruption. Amniotic fluid: Within normal limits. There is no vasa previa. Electronically Signed by Anthony Hedrick MD 03/07/2019 10:47 A
== END ==
LOC: M RAD 13:35
PROVIDERS: ATTEND Advanced Practice Midwife
DX: O26.852 Spotting complicating pregnancy, second trimester (principal); Z34.82 Encounter for supervision of other normal pregnancy, second trimester

== ENCOUNTER → 2019-04-16 | Outpatient (CLI) | payer OTHER ==
--- NOTE | 2019-04-16 17:55 | REP ---
Clinical: Anatomical evaluation. Comparison: 03/06/2019 . Findings: Examination demonstrates a single live intrauterine in transverse (head to maternal right) presentation. motion is identified by technologist. Placenta is noted anterior and grade zero without evidence for placenta previa or abruption. Amniotic fluid volume is normal. Cervix measures 5.9 cm in length and appears closed. No evidence for nuchal cord. Gestational age by LMP 25 weeks 1 day with MATILDA 07/29/2019 . Gestational age by current measurements 27 weeks 0 days with AMTILDA 07/16/2019 . FHR equals 164 beats per minute. Estimated weight 1038 grams ( 65th percentile based on age by first ultrasound at 26 weeks 2 days ). Anatomical assessment demonstrates normal structures including cranium, choroid plexus, cavum, cerebellum/posterior fossa, facial features, lungs, four-chamber heart/ventricular outflow tracts, diaphragm, stomach, cord insertion/three-vessel cord, kidneys/bladder, spine, and extremities. Impression: single live intrauterine in transverse lie demonstrating appropriate interval growth compared to first ultrasound. Anatomical assessment is complete and normal. Electronically Signed by Porter Shaffer MD 04/16/2019 05:47 P
== END ==
LOC: M RAD 09:40
PROVIDERS: ATTEND Advanced Practice Midwife
DX: O09.522 Supervision of elderly multigravida, second trimester (principal); Z3A.27 27 weeks gestation of pregnancy

== ENCOUNTER 2019-04-26 10:05 | Outpatient (CLI) | payer OTHER ==
[~2019-04-26] VITALS: Ht 157.5 cm; Wt 104.3 kg
[2019-04-26 10:10] VITALS: BP 126/83
[2019-04-26] MEDS ORDERED: VEDOLIZUMAB 300 MG in NS 250 ML IV ONE (11:00)
[2019-04-26 11:35] VITALS: BP 130/74
== END 2019-04-26 11:35 | disposition home or self-care (01) ==
LOC: M INFU 10:05
PROVIDERS: ATTEND Internal Medicine Gastroenterology
DX: K50.90 Crohn's disease, unspecified, without complications (principal); Z88.8 Allergy status to other drugs, medicaments and biological substances; Z88.0 Allergy status to penicillin; Z88.1 Allergy status to other antibiotic agents
CPT/HCPCS: 96365; J3380

== ENCOUNTER → 2019-05-21 | Outpatient (CLI) | payer OTHER ==
--- NOTE | 2019-05-21 16:33 | REP ---
OB ULTRASOUND: Real-time sonographic evaluation of the gravid uterus performed. There is a single living intrauterine gestation, the estimated gestational age 31 weeks 2 days, EDC 07/21/2019. Today's measurements indicate appropriate growth. BPD 81 mg 32 weeks 5 days, 69th percentile HC 304 mm = 33 weeks 5 days, 86th percentile AC 297 mm = 33 weeks 5 days, 85th percentile FL 61 mm = 31 weeks 4 days, 54th percentile HC/AC ratio 1.02, within normal range. Estimated weight 2098 grams, 79th percentile. Cervix is closed and measures 3.9 cm in length. heart rate 165 beats per minute. Amniotic fluid within normal limits, CATRACHITO 13.3, within normal range of 8.7 to 22.9. S/D ratio 2.70, within normal range of 2.5 to 3.5. RI 0.63, within normal range of 0.59 to 0.75. The stomach, kidneys and bladder are visualized and are grossly unremarkable. position is breech. Placenta anterior and grade 1 with no previa or abruption. Electronically Signed by Anthony Hedrick MD 05/21/2019 04:39 P
== END ==
LOC: M RAD 14:45
PROVIDERS: ATTEND Obstetrics & Gynecology
DX: O10.012 Pre-existing essential hypertension complicating pregnancy, second trimester (principal); Z3A.31 31 weeks gestation of pregnancy

== ENCOUNTER → 2019-05-22 | Outpatient (CLI) | payer OTHER ==
[2019-05-22 12:38] LABS: HEMATOCRIT 37.8 % (36.0-47.0); HEMOGLOBIN 12.2 g/dl (12.0-15.5); MEAN CORPUSCULAR HEMOGLOBIN 28.8 pg (27.0-33.0); MEAN CORPUSCULAR HGB CONC 32.3 g/dl (32.0-36.5); MEAN CORPUSCULAR VOLUME 89.4 fl (80.0-96.0); PLATELET COUNT, AUTOMATED 204 10^3/uL (150-450); RED BLOOD COUNT 4.23 10^6/uL (4.00-5.40); WHITE BLOOD COUNT 11.5 10^3/uL (4.0-10.0)
[2019-05-22 13:33] LABS: FREE T4 1.04 NG/DL (0.76-1.46); THYROID STIMULATING HORMONE 1.89 uIU/ML (0.358-3.740)
== END ==
LOC: M LAB 10:23
PROVIDERS: ATTEND Advanced Practice Midwife
DX: Z34.82 Encounter for supervision of other normal pregnancy, second trimester (principal)

== ENCOUNTER → 2019-05-24 | Outpatient (CLI) | payer OTHER | LOC: M LAB 08:27 | PROVIDERS: ATTEND Obstetrics & Gynecology | DX: R73.02 Impaired glucose tolerance (oral) (principal) ==

== ENCOUNTER 2019-05-30 20:31 | Outpatient (CLI) | payer OTHER ==
[~2019-05-30] VITALS: Ht 157.5 cm; Wt 109.0 kg
[2019-05-30] VITALS (11 sets, daily range): BP systolic 138–196; BP diastolic 77–101
[2019-05-30] MEDS ORDERED: LABETALOL 200 MG TAB PO ONE (21:45)
[2019-05-30 22:10] LABS: HEMATOCRIT 39.6 % (36.0-47.0); HEMOGLOBIN 12.8 g/dl (12.0-15.5); MEAN CORPUSCULAR HEMOGLOBIN 28.3 pg (27.0-33.0); MEAN CORPUSCULAR HGB CONC 32.3 g/dl (32.0-36.5); MEAN CORPUSCULAR VOLUME 87.6 fl (80.0-96.0); PLATELET COUNT, AUTOMATED 226 10^3/uL (150-450); RED BLOOD COUNT 4.52 10^6/uL (4.00-5.40); WHITE BLOOD COUNT 13.4 10^3/uL (4.0-10.0)
[2019-05-30] MEDS ORDERED: LABE100T36 PO (22:18)
[2019-05-30] MEDS ORDERED: ASPI81TA85 PO (22:18)
[2019-05-30] MEDS ORDERED: PRENTAB9 PO (22:18)
[2019-05-30 22:25] LABS: TOTAL PROTEIN,RANDOM URINE 63.3 MG/DL (0.0-12.0)
[2019-05-30 22:35] LABS: ALT/SGPT 14 U/L (12-78); BILIRUBIN,TOTAL 0.4 MG/DL (0.2-1.0); CREATININE FOR GFR 0.73 MG/DL (0.55-1.30); GLOMERULAR FILTRATION RATE > 60.0 (>60); LDH LACTATE DEHYDROGENASE 119 U/L (84-246)
[2019-05-30] MEDS ORDERED: LABETALOL HCL 100 MG/20 ML VIAL IV ONE (23:30)
[2019-05-31] MEDS ORDERED: DULoxetine 30 MG CAP (CYMBALTA) PO ONE (00:30)
[2019-05-31] MEDS ORDERED: LEVOTHYROXINE 137MCG TABLET (0.137MG) PO SCH (00:30)
[2019-05-31] MEDS ORDERED: QUEtiapine FUMARATE 100 MG TAB PO ONE (00:30)
[2019-05-31] MEDS ORDERED: ASPIRIN 81 MG ENTERIC TAB PO SCH (00:30)
[2019-05-31 00:31] VITALS: BP 137/69
[2019-05-31 01:33] VITALS: BP 176/83
[2019-05-31 01:38] VITALS: BP 165/80
[2019-05-31 01:48] VITALS: BP 163/74
[2019-05-31 02:05] VITALS: BP 138/89
[2019-05-31 02:33] VITALS: BP 123/86
--- NOTE | 2019-05-31 06:42 | HPE ---
DATE OF ADMISSION: 05/30/2019 REASON FOR VISIT: Elevated blood pressure. HISTORY OF PRESENT ILLNESS: This patient is a 34-year-old, 2, para 1, who presents at 31 weeks and 3 days by her last menstrual period, confirmed by a second trimester ultrasound, with complaints of elevated blood pressure. She reports tachycardia at home. She took a blood pressure and was noted to have severely elevated blood pressure 190s over 80s on her blood pressure cuff at home and then presented to Labor and Delivery for evaluation. Her course has been remarkable for history of chronic hypertension. She is currently on 100 mg twice a day of labetalol as well as a baby aspirin. PAST MEDICAL HISTORY: 1. History of Crohn disease. 2. Maximino thyroiditis. 3. Fibromyalgia. 4. Depression and anxiety. 5. Hypertension. 6. Obesity. PAST SURGICAL HISTORY: 1. section. 2. Ovarian cystectomy. 3. Oral surgery. 4. Umbilical hernia repair. 5. Appendectomy. MEDICATIONS: Include labetalol 100 mg twice a day, levothyroxine 137 mcg, vitamins, Seroquel 100 mg, Cymbalta 30 mg, aspirin 81 mg. ALLERGIES: - PENICILLIN - LEVAQUIN - HUMIRA - LATUDA SOCIAL HISTORY: She is a former smoker. Denies any alcohol, tobacco or drug use during . OBSTETRICAL HISTORY: She is a 2, para 1. She has had 1 term section. PHYSICAL EXAMINATION: Initial blood pressure 139/93, but with serial blood pressures she has had intermittent severe range blood pressures - 196/88, 172/92 and 162/87. She has a category one rate tracing. General Appearance: Well appearing, in no acute distress. Neurologically, she is grossly intact. Lungs: Clear to auscultation bilaterally. Cardiovascular: Regular rate and rhythm. Abdomen is soft, nontender, gravid. LABS: She has spot urine of 0.34. Her platelets are 226. She had a normal pre-eclamptic panel. ASSESSMENT: 1. This patient is a 34-year-old, 2, para 1, at 31 weeks 3 days estimated gestational age with chronic hypertension and with worsening blood pressure. 2. Reassuring status. PLAN: To increase the labetalol to 200 mg twice a day starting now. Will continue to evaluate overnight. If she remains stable, will discharge home with close followup in the office.
[2019-05-31] MEDS ORDERED: LABE200T32 PO (07:30)
== END 2019-05-31 03:20 | disposition home or self-care (01) ==
LOC: M LDO 20:31
PROVIDERS: ATTEND Obstetrics & Gynecology
DX: O99.89 Other specified diseases and conditions complicating pregnancy, childbirth and the puerperium (principal); I10 Essential (primary) hypertension; R03.0 Elevated blood-pressure reading, without diagnosis of hypertension; Z79.899 Other long term (current) drug therapy; Z88.0 Allergy status to penicillin; Z88.8 Allergy status to other drugs, medicaments and biological substances; Z3A.31 31 weeks gestation of pregnancy
CPT/HCPCS: 36415; 59025; 82247; 82565; 82570; 83615; 84156; 84450; 84460; 84550; 85027; G0378; G0463

== ENCOUNTER → 2019-06-13 | Outpatient (REF) | payer OTHER ==
[~2019-06-13] MED LIST changes: +ASPI81TA85 PO; +CYMB1CAP5 PO; +LABE100T36 PO; +LABE200T32 PO; +LEVO137T2 PO; +PRENTAB9 PO
== END ==
LOC: M SFHCWAGY 12:56
PROVIDERS: ATTEND Advanced Practice Midwife
DX: O34.211 Maternal care for low transverse scar from previous cesarean delivery (principal)

== ENCOUNTER → 2019-06-14 | Outpatient (CLI) | payer OTHER ==
--- NOTE | 2019-06-14 14:47 | REP ---
OB ULTRASOUND: Real-time sonographic evaluation of the gravid uterus is performed. There is a single living intrauterine gestation. Estimated gestational age 34 weeks 5 days, EDC 07/21/2019. Today's measurements indicate greater than expected growth, with estimated weight over the 97th percentile, previously the estimated weight was at the 79th percentile on the study of 05/21/2019. BPD 95 mm = 38 weeks 4 days, over 95th percentile HC 338 mm = 38 weeks 6 days, over 95th percentile AC 340 mm = 37 weeks 6 days, over 95th percentile Femur length 69 mm = 35 weeks 3 days, 60th percentile HC/AC ratio 1.0 within normal range. Estimated weight 3220 grams, over 97th percentile. heart rate 150 beats per minute. Amniotic fluid appears within normal limits, CATRACHITO 19.4 within normal range of 7.9-24.9. S/D ratio 2.25 within normal range of 2.0 to 3.0. RI 0.55 below normal range of 0.59-0.75. Visualized anatomy today includes lateral ventricles, upper lip, stomach, cord insertion, three vessel cord, kidneys and bladder which are all grossly unremarkable. position vertex. Placenta anterior and graded 2 with no previa or abruption. Cervix is closed and measures 3.4 cm in length. IMPRESSION: Greater than expected growth, with estimated weight over the 97th percentile as discussed in detail above. Electronically Signed by Anthony Hedrick MD 06/14/2019 04:55 P
== END ==
LOC: M RAD 12:54
PROVIDERS: ATTEND Obstetrics & Gynecology
DX: O24.419 Gestational diabetes mellitus in pregnancy, unspecified control (principal); O36.63X1 Maternal care for excessive fetal growth, third trimester, fetus 1; Z3A.34 34 weeks gestation of pregnancy

== ENCOUNTER 2019-06-15 20:27 | Outpatient (CLI) | payer OTHER ==
[~2019-06-15] VITALS: Ht 157.5 cm; Wt 111.0 kg
[~2019-06-15 20:27] MED LIST changes: -CYMB1CAP5 PO; -LEVO137T2 PO
[2019-06-15 20:46] VITALS: BP 140/87
[2019-06-15 21:02] VITALS: BP 133/84
[2019-06-15 21:17] VITALS: BP 133/85
[2019-06-15] MEDS ORDERED: LEVO137T2 PO (21:47)
[2019-06-15] MEDS ORDERED: CYMB1CAP5 PO (21:47)
[2019-06-24] MEDS ORDERED: CLON1TAB8 PO (07:49)
[2019-06-24] MEDS ORDERED: AMBI10TA PO (07:49)
[2019-06-24] MEDS ORDERED: XANA2TAB2 PO (07:49)
[2019-06-24] MEDS ORDERED: ENTY1INJ IV (08:02)
== END 2019-06-15 21:39 | disposition home or self-care (01) ==
LOC: M LDO 20:27
PROVIDERS: ATTEND Obstetrics & Gynecology
DX: O36.8130 Decreased fetal movements, third trimester, not applicable or unspecified (principal); Z3A.33 33 weeks gestation of pregnancy
CPT/HCPCS: 59025; G0378; G0463

== ENCOUNTER 2019-06-17 21:19 | Outpatient (CLI) | payer OTHER ==
[~2019-06-17] VITALS: Ht 157.5 cm; Wt 110.5 kg
[~2019-06-17 21:19] MED LIST changes: +CYMB1CAP5 PO; +LEVO137T2 PO
[2019-06-17 21:37] VITALS: BP 136/79
[2019-06-17] MEDS ORDERED: LR 1,000 ML IV SCH (22:30)
[2019-06-17] MEDS ORDERED: LR 1,000 ML IV ONE (22:30)
--- NOTE | 2019-06-17 22:47 | IPNPDOC ---
Text Note Date of Service The patient was seen on 06/17/19. NOTE Subjective: Patient is a 34-year-old female who is a at 34 weeks gestation with an MATILDA of 07/29/19. she initiated care in her first trimester. her care has been complicated by multiple comorbidities including: AMA, Crohn's disease that is controlled with Entyvio infusions; Maximino's disease, fibromyalgia; depression and anxiety controlled with Seroquel and Cymbalta; infertility with IUI transfer; essential hypertension controlled with Labetalol 00 mg BID; obesity; and a prior section. She presents with complaints of contraction that started at 1630 today that have gotten closer together and more painful. She denies vaginal bleeding or leaking of fluid. She reports active movement. Reports pain is 5/10. She denies vaginal itching or abnormal discharge. After 6 hours and Stadol and Phenergan patient reports contractions to be improved and rates them a 1/10. She reports she was able to sleep well with the contractions after receiving the medication. Patient has had frequent regular contractions with every visit to the hospital. Objective: VS: see below. FHR 135, moderate variability, positive accelerations, no decelerations. Contractions: 2-6 minutes. A+O x3. Abdomen palpates with mild contractions and are soft in between contractions. Respiratory rate is regular with no use of accessory muscles. SVE: 1/thick/high, anterior, soft, no show. Recheck 6 hours later shows no cervical change. Assessment: IUP at 34 weeks gestation; Category I FHR tracing; contractions without labor. Plan: Will continue to monitor and recheck cervical exam. Saline lock ordered and IV bolus of 1 liter to be given then at 125 cc/hr. Stadol and Phenergan ordered via IV for pain relief. Terbutaline SC ordered to help relieve and stop some of her contractions and given mostly for comfort. Patient to be observed for another hour after terbutaline and may be discharged to home. Education done on labor signs, appropriate movement, and danger signs to report. VS,Fishbone, I+O VS, Fishbone, I+O Vital Signs Label Value Date Time Patient Temperature 98.2 degrees F 06/18/19 0357 Temperature Source Temporal 06/18/19 0357 Pulse 93 06/18/19 0423 Respiratory Rate 20 bpm 12/24/19 0357 Blood Pressure Assessment 137/81 (99) 06/18/19 0423 Source Automatic Cuff (NIBP) NICOLE GERONIMO CNM Jun 17, 2019 22:47
[2019-06-17 22:51] VITALS: BP 139/79
[2019-06-17] MEDS ORDERED: BUTORPHANOL 2 MG/ML INJ (J0595) IV ONE (23:00)
[2019-06-17] MEDS ORDERED: PROMETHAZINE INJ 25 MG/ML VIAL (J2550) IV ONE (23:00)
[2019-06-17 23:13] LABS: AMORPHOUS SEDIMENT SMALL (NEGATIVE); APPEARANCE, URINE CLOUDY (CLEAR); BACTERIA, URINE AUTO 3+ (NEGATIVE); BILIRUBIN, URINE AUTO NEGATIVE (NEGATIVE); BLOOD, URINE BLOOD NEGATIVE (NEGATIVE); COLOR, URINE YELLOW (YELLOW); GLUCOSE, URINE (UA) AUTO NEGATIVE (NEGATIVE); KETONE, URINE AUTO TRACE mg/dL (NEGATIVE); LEUKOCYTE ESTERASE, URINE AUTO 1+ (NEGATIVE); MUCUS, URINE SMALL (NEGATIVE); NITRITE, URINE AUTO NEGATIVE (NEGATIVE); PROTEIN, URINE AUTO NEGATIVE (NEGATIVE); RBC, URINE AUTO 4 /HPF (0-3); SPECIFIC GRAVITY URINE AUTO 1.012 (1.002-1.035); SQUAMOUS EPITHELIAL CELL UR AU 2 /HPF (0-6); UROBILINOGEN, URINE AUTO 0.2 mg/dL (0.0-2.0); WBC, URINE AUTO 14 /HPF (0-3)
[2019-06-18 00:23] VITALS: BP 143/75
[2019-06-18 01:23] VITALS: BP 133/74
[2019-06-18 02:23] VITALS: BP 131/76
[2019-06-18 03:23] VITALS: BP 132/71
[2019-06-18 04:23] VITALS: BP 137/81
[2019-06-18] MEDS ORDERED: TERBUTALINE SULFATE 1 MG/ML VIAL (J3105) SC ONE (05:15)
[2019-06-24] MEDS ORDERED: XANA2TAB2 PO (07:49)
[2019-06-24] MEDS ORDERED: CLON1TAB8 PO (07:49)
[2019-06-24] MEDS ORDERED: AMBI10TA PO (07:49)
[2019-06-24] MEDS ORDERED: ENTY1INJ IV (08:02)
== END 2019-06-18 06:40 | disposition home or self-care (01) ==
LOC: M LDO 21:19
PROVIDERS: ATTEND Advanced Practice Midwife
DX: O47.03 False labor before 37 completed weeks of gestation, third trimester (principal); O10.013 Pre-existing essential hypertension complicating pregnancy, third trimester; O34.219 Maternal care for unspecified type scar from previous cesarean delivery; O09.03 Supervision of pregnancy with history of infertility, third trimester; O99.213 Obesity complicating pregnancy, third trimester; O99.283 Endocrine, nutritional and metabolic diseases complicating pregnancy, third trimester; K50.90 Crohn's disease, unspecified, without complications; E06.3 Autoimmune thyroiditis; O99.353 Diseases of the nervous system complicating pregnancy, third trimester; M79.7 Fibromyalgia; O99.340 Other mental disorders complicating pregnancy, unspecified trimester; F32.9 Major depressive disorder, single episode, unspecified; F41.9 Anxiety disorder, unspecified; Z3A.34 34 weeks gestation of pregnancy
CPT/HCPCS: 59025; 81001; 96374; 96375; G0378; G0463; J0595; J3105

== ENCOUNTER 2019-06-21 13:53 | Outpatient (CLI) | payer OTHER ==
[~2019-06-21] VITALS: Ht 157.5 cm; Wt 104.3 kg
[~2019-06-21 13:53] MED LIST changes: -ENTY1INJ IV; -XANA2TAB2 PO
[2019-06-21 14:04] VITALS: BP 146/69
[2019-06-21] MEDS ORDERED: VEDOLIZUMAB 300 MG in NS 250 ML IV ONE (14:15)
[2019-06-21 15:04] VITALS: BP 131/70
[2019-06-24] MEDS ORDERED: CLON1TAB8 PO (07:49)
[2019-06-24] MEDS ORDERED: AMBI10TA PO (07:49)
[2019-06-24] MEDS ORDERED: XANA2TAB2 PO (07:49)
[2019-06-24] MEDS ORDERED: ENTY1INJ IV (08:02)
== END 2019-06-21 15:10 | disposition home or self-care (01) ==
LOC: M INFU 13:53
PROVIDERS: ATTEND Internal Medicine Gastroenterology
DX: K50.90 Crohn's disease, unspecified, without complications (principal); Z36.85 Encounter for antenatal screening for Streptococcus B; Z79.82 Long term (current) use of aspirin; Z79.899 Other long term (current) drug therapy; Z88.0 Allergy status to penicillin; Z88.8 Allergy status to other drugs, medicaments and biological substances
CPT/HCPCS: 87081; 96365; J3380

== ENCOUNTER → 2019-06-21 | Outpatient (REF) | payer OTHER ==
[~2019-06-21] MED LIST changes: +ENTY1INJ IV; +XANA2TAB2 PO
== END ==
LOC: M SFHCWAGY 13:13
PROVIDERS: ATTEND Specialist
DX: Z36.85 Encounter for antenatal screening for Streptococcus B (principal)

== ENCOUNTER 2019-06-25 23:39 | Outpatient (CLI) | payer OTHER ==
[~2019-06-25] VITALS: Ht 157.5 cm; Wt 111.0 kg
[~2019-06-25 23:39] MED LIST changes: +ENTY1INJ IV; +XANA2TAB2 PO
[2019-06-25 23:54] VITALS: BP 137/83
[2019-06-26] VITALS (16 sets, daily range): BP systolic 114–159; BP diastolic 68–96
[2019-06-26] MEDS ORDERED: PROMETHAZINE 25 MG TAB PO ONE (00:30)
[2019-06-26] MEDS ORDERED: TERBUTALINE SULFATE 1 MG/ML VIAL (J3105) SC ONE (00:30)
[2019-06-26] MEDS ORDERED: BUTORPHANOL 2 MG/ML INJ (J0595) IV ONE ×3 (01:00→22:00)
[2019-06-26] MEDS: BETAMETHASONE SOLUSPAN 6MG/ML INJ 5ML (J0702) IM SCH (01:23)
[2019-06-26] MEDS ORDERED: PROMETHAZINE INJ 25 MG/ML VIAL (J2550) IV ONE ×2 (09:15→22:00)
[2019-06-26] MEDS: LEVOTHYROXINE 137MCG TABLET (0.137MG) PO SCH (09:28)
[2019-06-26] MEDS: LABETALOL 200 MG TAB PO SCH ×2 (09:29→20:54)
[2019-06-26] MEDS: SLF 3 ML SYR IV PRN ×2 (09:47→17:45)
[2019-06-27] MEDS: BETAMETHASONE SOLUSPAN 6MG/ML INJ 5ML (J0702) IM SCH (00:53)
[2019-06-27 07:23] VITALS: BP 122/66
[2019-06-27] MEDS: LEVOTHYROXINE 137MCG TABLET (0.137MG) PO SCH (07:24)
[2019-06-27 09:08] VITALS: BP 131/65
[2019-06-27] MEDS: LABETALOL 200 MG TAB PO SCH (09:08)
== END 2019-06-27 09:23 | disposition home or self-care (01) ==
LOC: M LDO 23:39
PROVIDERS: ATTEND Obstetrics & Gynecology
DX: O62.0 Primary inadequate contractions (principal); Z3A.35 35 weeks gestation of pregnancy
CPT/HCPCS: 59025; 96372; 96374; 96375; 96376; G0378; G0463; J0595; J0702; J3105

== ENCOUNTER 2019-07-08 05:36 | Inpatient (IN) | payer OTHER ==
[~2019-07-08] VITALS: Ht 157.5 cm; Wt 113.1 kg
[2019-07-08] VITALS (7 sets, daily range): BP systolic 133–165; BP diastolic 70–101
[2019-07-08] MEDS ORDERED: LR 1,000 ML IV ONE ×2 (06:00→17:45)
[2019-07-08] MEDS: LEVOTHYROXINE 137MCG TABLET (0.137MG) PO SCH (06:00)
[2019-07-08] MEDS ORDERED: ceFAZolin SOD 2 GM in IV 1 EA IV ONE (06:00)
[2019-07-08] MEDS ORDERED: BICITRA 30ML SOLN UDC PO ONE (06:00)
[2019-07-08 06:42] LABS: HEMOGLOBIN 11.3 g/dl (12.0-15.5); MEAN CORPUSCULAR HEMOGLOBIN 27.7 pg (27.0-33.0); MEAN CORPUSCULAR HGB CONC 32.3 g/dl (32.0-36.5); MEAN CORPUSCULAR VOLUME 85.8 fl (80.0-96.0); PLATELET COUNT, AUTOMATED 215 10^3/uL (150-450); RED BLOOD COUNT 4.08 10^6/uL (4.00-5.40); WHITE BLOOD COUNT 10.2 10^3/uL (4.0-10.0)
[2019-07-08] MEDS ORDERED: LR 1,000 ML IV SCH (07:00)
[2019-07-08] MEDS ORDERED: MORPHINE PRES-FREE INJ 10 MG/10 ML VIAL (J2274) As Ordered ONE (07:16)
[2019-07-08] MEDS ORDERED: dexameTHASONE 4 MG/ML 1ML VIAL (J1100) As Ordered ONE (07:18)
[2019-07-08] MEDS ORDERED: ONDANSETRON 4MG/2ML VIAL (J2405) As Ordered ONE (07:18)
[2019-07-08] MEDS ORDERED: PHENYLephrine HCL 500 MCG/5 ML (100MCG/ML) SYRINGE (J2370) As Ordered ONE (07:20)
[2019-07-08] MEDS ORDERED: OXYTOCIN 30 UNITS IN 0.9% NaCl 500ML IV BAG (J2590) As Ordered ONE ×2 (07:20→09:20)
[2019-07-08] MEDS ORDERED: MIDAZOLAM INJ 2 MG/2 ML VIAL (J2250) As Ordered ONE (07:31)
[2019-07-08] MEDS ORDERED: diphenhydrAMINE INJ 50MG/ML VIAL (J1200) IV PRN (07:44)
[2019-07-08] MEDS ORDERED: ONDANSETRON 4MG/2ML VIAL (J2405) IV PRN ×2 (07:44→09:15)
[2019-07-08] MEDS ORDERED: METOCLOPRAMIDE INJ 10MG/2ML VIAL (J2765) IV PRN (07:44)
[2019-07-08] MEDS ORDERED: NALBUPHINE HCL 10 MG/ML AMP (J2300) IV PRN ×2 (07:44→09:15)
[2019-07-08] MEDS ORDERED: NALOXONE INJ 0.4 MG/1 ML VIAL (J2310) IV PRN ×2 (07:44)
[2019-07-08] MEDS ORDERED: OXYTOCIN INJ 10 UNITS/ML VIAL (J2590) As Ordered ONE ×2 (08:31→08:32)
[2019-07-08] MEDS ORDERED: DULoxetine 30 MG CAP (CYMBALTA) PO SCH (09:00)
[2019-07-08] MEDS ORDERED: OXYTOCIN DRIP 30 UNITS in IV 1 EA IV SCH (09:13)
[2019-07-08] MEDS ORDERED: fentaNYL 100 MCG/2 ML INJECTION (J3010) IV PRN (09:15)
[2019-07-08] MEDS ORDERED: RHOGAM 300 MCG (1500 IU) INJ (J2790) IM SCH (09:15)
[2019-07-08] MEDS ORDERED: ONDANSETRON 4 MG TAB (S0181) PO PRN (09:15)
[2019-07-08] MEDS ORDERED: PROMETHAZINE 25 MG TAB PO PRN (09:15)
[2019-07-08] MEDS ORDERED: PERCOCET 5MG/325MG TAB PO PRN (09:15)
[2019-07-08] MEDS ORDERED: ACETAMINOPHEN 500 MG TAB PO PRN (09:15)
[2019-07-08] MEDS ORDERED: MEASLES,MUMPS,RUBELLA VACCINE INJ (MMR-II) (90707) SC SCH (09:15)
[2019-07-08] MEDS ORDERED: KETOROLAC 30 MG/ML VIAL (J1885) IV PRN (09:15)
[2019-07-08] MEDS ORDERED: fentaNYL 100 MCG/2 ML INJECTION (J3010) As Ordered ONE (09:20)
[2019-07-08] MEDS ORDERED: LABETALOL HCL 100 MG/20 ML VIAL IV PRN (09:30)
[2019-07-08] MEDS ORDERED: KETOROLAC 30 MG/ML VIAL (J1885) As Ordered ONE (10:05)
[2019-07-08] MEDS: PERCOCET 5MG/325MG TAB PO PRN ×2 (12:30→18:31)
[2019-07-08] MEDS: LR 1,000 ML IV SCH ×2 (13:36→20:51)
[2019-07-08] MEDS: KETOROLAC 30 MG/ML VIAL (J1885) IV SCH ×2 (15:53→22:04)
[2019-07-08] MEDS: QUEtiapine FUMARATE 100 MG TAB PO SCH (20:50)
[2019-07-08] MEDS: DULoxetine 30 MG CAP (CYMBALTA) PO SCH (20:50)
[2019-07-08] MEDS: DOCUSATE SODIUM 100 MG CAP PO SCH (20:50)
[2019-07-08] MEDS: LABETALOL 200 MG TAB PO SCH (20:51)
[2019-07-09] MEDS: PERCOCET 5MG/325MG TAB PO PRN ×4 (00:13→18:18)
[2019-07-09 02:00] VITALS: BP 120/72
[2019-07-09] MEDS: KETOROLAC 30 MG/ML VIAL (J1885) IV SCH (04:27)
[2019-07-09] MEDS: LEVOTHYROXINE 137MCG TABLET (0.137MG) PO SCH (05:48)
[2019-07-09 05:59] VITALS: BP 143/82
[2019-07-09 07:35] LABS: HEMATOCRIT 30.3 % (36.0-47.0); HEMOGLOBIN 9.4 g/dl (12.0-15.5); MEAN CORPUSCULAR HEMOGLOBIN 27.4 pg (27.0-33.0); MEAN CORPUSCULAR VOLUME 88.3 fl (80.0-96.0); PLATELET COUNT, AUTOMATED 196 10^3/uL (150-450); RED BLOOD COUNT 3.43 10^6/uL (4.00-5.40); WHITE BLOOD COUNT 10.6 10^3/uL (4.0-10.0)
--- NOTE | 2019-07-09 07:53 | IPNPDOC ---
Progress Note Date of Service: Jul 09, 2019 Day#: 1 Progress Note SUBJECT: She has been ambulating, voiding spontaneously without issue and tolerating regular diet. She showered without assistance. She is saline locked. Patient is pumping. OBJECTIVE: VITAL SIGNS: Within normal limits, afebrile. Alert and oriented times three. Breath sounds clear to auscultation. Heart rate: Regular rate and rhythm, no murmurs, rubs or gallops. Abdomen: Fundus firm at U-2. Soft, NTTP. Minimal lochia. ASSESSMENT: Day 1 postoperative PLAN: 1.Continue with supportive nursing care and pain management. 2. Consider discharge on Day 3 as baby is in NICU. VS, I&O, 24H, Fishbone Vital Signs/I&O Vital Signs Date Time Temp Pulse Resp B/P (MAP) Pulse Ox O2 Delivery O2 Flow Rate FiO2 07/09/19 05:59 97.3 98 18 143/82 (102) 96 Room Air I&O- Last 24 Hours up to 6 AM 07/09/19 05:59 Intake Total 2690 ml Output Total 1935 ml Balance 755 ml Laboratory Data 24H LABS Laboratory Tests 2 07/09/19 07:17: Nucleated Red Blood Cells % (auto) 0.0 CBC/BMP Laboratory Tests 07/09/19 07:17 NICOLE GERONIMO CNM Jul 09, 2019 07:53
[2019-07-09] MEDS ORDERED: PRENATAL VITAMINS CHEWABLE TABLET PO SCH (09:00)
[2019-07-09] MEDS: LABETALOL 200 MG TAB PO SCH ×2 (09:04→20:14)
[2019-07-09] MEDS: PRENATAL VITAMINS CHEWABLE TABLET PO SCH (09:04)
[2019-07-09] MEDS: DOCUSATE SODIUM 100 MG CAP PO SCH ×2 (09:04→20:13)
[2019-07-09 10:00] VITALS: BP 119/61
[2019-07-09] MEDS: IBUPROFEN 800 MG TAB PO SCH ×2 (12:14→20:13)
[2019-07-09 18:00] VITALS: BP 147/74
[2019-07-09] MEDS: DULoxetine 30 MG CAP (CYMBALTA) PO SCH (20:14)
[2019-07-09] MEDS: QUEtiapine FUMARATE 100 MG TAB PO SCH (20:14)
[2019-07-09 22:00] VITALS: BP 139/90
[2019-07-10] MEDS: PERCOCET 5MG/325MG TAB PO PRN ×3 (00:58→13:28)
[2019-07-10 02:00] VITALS: BP 133/71
[2019-07-10] MEDS: IBUPROFEN 800 MG TAB PO SCH ×2 (04:14→12:07)
[2019-07-10] MEDS: LEVOTHYROXINE 137MCG TABLET (0.137MG) PO SCH (05:54)
[2019-07-10 06:00] VITALS: BP 138/78
[2019-07-10] MEDS ORDERED: PERCOCET PO (07:48)
[2019-07-10] MEDS ORDERED: DOCU100C16 PO (07:48)
[2019-07-10] MEDS ORDERED: IBUP80TA PO (07:48)
[2019-07-10] MEDS: PRENATAL VITAMINS CHEWABLE TABLET PO SCH (09:35)
[2019-07-10] MEDS: DOCUSATE SODIUM 100 MG CAP PO SCH (09:35)
[2019-07-10 10:06] VITALS: BP 166/85
[2019-07-10] MEDS: LABETALOL 200 MG TAB PO SCH (10:06)
== END 2019-07-10 14:00 | disposition home or self-care (01) | DRG 772 ==
LOC: M LDI 05:36 → M OBS 10:59
PROVIDERS: ADMIT Obstetrics & Gynecology; ATTEND Obstetrics & Gynecology
PROC: 10D00Z1 Extraction of Products of Conception, Low, Open Approach (ICD-10-PCS; principal; 2019-07-08 07:30)
DX: O34.211 Maternal care for low transverse scar from previous cesarean delivery (principal); O10.02 Pre-existing essential hypertension complicating childbirth; K50.80 Crohn's disease of both small and large intestine without complications; Z3A.37 37 weeks gestation of pregnancy; O99.284 Endocrine, nutritional and metabolic diseases complicating childbirth; E06.3 Autoimmune thyroiditis; O99.62 Diseases of the digestive system complicating childbirth; O99.214 Obesity complicating childbirth; E66.01 Morbid (severe) obesity due to excess calories; O24.429 Gestational diabetes mellitus in childbirth, unspecified control; Z88.0 Allergy status to penicillin; O99.344 Other mental disorders complicating childbirth; F32.9 Major depressive disorder, single episode, unspecified; F41.9 Anxiety disorder, unspecified; E03.9 Hypothyroidism, unspecified; Z37.0 Single live birth

== ENCOUNTER 2019-08-16 14:39 | Outpatient (CLI) | payer OTHER ==
[~2019-08-16] VITALS: Ht 157.5 cm; Wt 104.3 kg
[~2019-08-16 14:39] MED LIST changes: +DOCU100C16 PO; +IBUP80TA PO
[2019-08-16 14:45] VITALS: BP 124/69
[2019-08-16] MEDS ORDERED: VEDOLIZUMAB 300 MG in NS 250 ML IV ONE (15:30)
[2019-08-16 15:50] VITALS: BP 134/79
== END 2019-08-16 15:55 | disposition home or self-care (01) ==
LOC: M INFU 14:39
PROVIDERS: ATTEND Internal Medicine Gastroenterology
DX: K50.90 Crohn's disease, unspecified, without complications (principal); Z88.0 Allergy status to penicillin; Z88.4 Allergy status to anesthetic agent; Z88.8 Allergy status to other drugs, medicaments and biological substances
CPT/HCPCS: 96365; J3380

== ENCOUNTER → 2019-08-26 | Outpatient (CLI) | payer OTHER ==
--- NOTE | 2019-08-26 19:20 | REPVR ---
PROCEDURE INFORMATION: Exam: MR Thoracic Spine Without Contrast Exam date and time: 08/26/2019 6:33 PM Age: 34 years old Clinical indication: Condition or disease; Spondylosis; Thoracolumbar; Without myelopathy or radiculopathy; Additional info: Lumbo and thorasic spondylosis TECHNIQUE: Imaging protocol: Multiplanar magnetic resonance images of the thoracic spine without intravenous contrast. COMPARISON: No relevant prior studies available. FINDINGS: Vertebrae: Unremarkable. Spinal cord: Normal signal. No cord compression. T1-T2: No significant disc disease. No significant spinal canal stenosis. T2-T3: No significant disc disease. No significant spinal canal stenosis. T3-T4: No significant disc disease. No significant spinal canal stenosis. T4-T5: No significant disc disease. No significant spinal canal stenosis. T5-T6: No significant disc disease. No significant spinal canal stenosis. T6-T7: Small central disc protrusion at T6-T7 effacing the ventral subarachnoid space without cord impingement. T7-T8: No significant disc disease. No significant spinal canal stenosis. T8-T9: No significant disc disease. No significant spinal canal stenosis. T9-T10: No significant disc disease. No significant spinal canal stenosis. T10-T11: No significant disc disease. No significant spinal canal stenosis. T11-T12: No significant disc disease. No significant spinal canal stenosis. Soft tissues: Unremarkable. IMPRESSION: 1. Small central disc protrusion at T6-T7 effacing the ventral subarachnoid space without cord impingement. 2. Otherwise unremarkable. Electronically signed by: Mike Aguirre On 08/26/2019 19:20:17 PM
--- NOTE | 2019-08-26 19:22 | REPVR ---
PROCEDURE INFORMATION: Exam: MR Lumbar Spine Without Contrast. Exam date and time: 08/26/2019 6:33 PM Age: 34 years old Clinical indication: Condition or disease; Spondylosis, lumbosacral; Thoracolumbar region; Without myelopathy or radiculopathy; Additional info: Lumbo and thorasic spondylosis TECHNIQUE: Imaging protocol: Multiplanar magnetic resonance images of the lumbar spine without intravenous contrast. COMPARISON: No relevant prior studies available. FINDINGS: Vertebrae: Unremarkable. Spinal cord: Normal signal. No cord compression. L1-L2: No significant disc disease. No significant spinal canal stenosis. No neural foraminal stenosis. L2-L3: No significant disc disease. No significant spinal canal stenosis. No neural foraminal stenosis. L3-L4: No significant disc disease. No significant spinal canal stenosis. No neural foraminal stenosis. L4-L5: Mild annular bulge L4-L5 without spinal stenosis. L5-S1: No significant disc disease. No significant spinal canal stenosis. No neural foraminal stenosis. Soft tissues: Unremarkable. IMPRESSION: Mild annular bulge L4-L5 without neural compromise. Otherwise unremarkable. Electronically signed by: Mike Aguirre On 08/26/2019 19:22:26 PM
== END ==
LOC: M RAD 17:38
PROVIDERS: ATTEND Pain Medicine Interventional Pain Medicine
DX: M51.24 Other intervertebral disc displacement, thoracic region (principal); M51.27 Other intervertebral disc displacement, lumbosacral region; M47.814 Spondylosis without myelopathy or radiculopathy, thoracic region; M47.817 Spondylosis without myelopathy or radiculopathy, lumbosacral region

== ENCOUNTER 2019-10-11 09:37 | Outpatient (CLI) | payer OTHER ==
[~2019-10-11] VITALS: Ht 157.5 cm; Wt 104.3 kg
[~2019-10-11 09:37] MED LIST changes: +CYCL-707 PO; -CYCL10TA PO
[2019-10-11 09:45] VITALS: BP 140/80
[2019-10-11] MEDS ORDERED: VEDOLIZUMAB 300 MG in NS 250 ML IV ONE (10:00)
[2019-10-11 11:05] VITALS: BP 137/80
== END 2019-10-11 11:05 | disposition home or self-care (01) ==
LOC: M INFU 09:37
PROVIDERS: ATTEND Internal Medicine Gastroenterology
DX: K50.90 Crohn's disease, unspecified, without complications (principal); Z88.0 Allergy status to penicillin; Z88.8 Allergy status to other drugs, medicaments and biological substances
CPT/HCPCS: 96365; J3380

== ENCOUNTER → 2019-11-19 | Outpatient (CLI) | payer OTHER ==
[2019-11-19 11:43] LABS: BASO # 0.1 10^3/uL (0.0-0.2); BASO % 0.5 % (0.0-1.0); EOS # 0.4 10^3/uL (0.0-0.5); EOS % 2.9 % (0.0-3.0); HEMATOCRIT 44.3 % (36.0-47.0); LYMPH # 3.3 10^3/uL (1.5-5.0); LYMPH % 27.3 % (24.0-44.0); MEAN CORPUSCULAR HEMOGLOBIN 27.5 pg (27.0-33.0); MEAN CORPUSCULAR HGB CONC 31.6 g/dl (32.0-36.5); MONO # 0.4 10^3/uL (0.0-0.8); MONO % 3.2 % (0.0-5.0); NEUTROPHILS # 7.9 10^3/uL (1.5-8.5); NEUTROPHILS % 65.9 % (36.0-66.0); PLATELET COUNT, AUTOMATED 293 10^3/uL (150-450); RED BLOOD COUNT 5.09 10^6/uL (4.00-5.40)
[2019-11-19 12:24] LABS: ALBUMIN 3.6 GM/DL (3.2-5.2); BILIRUBIN,TOTAL 0.4 MG/DL (0.2-1.0); CALCIUM LEVEL 9.4 MG/DL (8.5-10.1); CREATININE FOR GFR 1.2 MG/DL (0.55-1.30); FREE T4 0.79 NG/DL (0.76-1.46); GLOMERULAR FILTRATION RATE 54.1 (>60); POTASSIUM SERUM 4.6 MEQ/L (3.5-5.1); THYROID STIMULATING HORMONE 1.56 uIU/ML (0.358-3.740); TOTAL PROTEIN 7.5 GM/DL (6.4-8.2)
== END ==
LOC: M LAB 11:06
PROVIDERS: ATTEND Physician Assistant
DX: E03.9 Hypothyroidism, unspecified (principal); K50.80 Crohn's disease of both small and large intestine without complications; R25.1 Tremor, unspecified

== ENCOUNTER 2019-12-06 10:02 | Outpatient (CLI) | payer OTHER ==
[~2019-12-06] VITALS: Ht 157.5 cm; Wt 104.0 kg
[~2019-12-06 10:02] MED LIST changes: -ASPI81TA85 PO; +ASPI81TA86 PO; -LISI-538 PO; +LISI20TA33 PO; +PANT40TA29 PO; -PANT40TA3 PO
[2019-12-06 10:05] VITALS: BP 134/68
[2019-12-06] MEDS ORDERED: VEDOLIZUMAB 300 MG in NS 250 ML IV ONE (10:30)
[2019-12-06 11:15] VITALS: BP 118/73
[2020-02-18] MEDS ORDERED: TRAZ-252 PO (14:27)
[2020-02-18] MEDS ORDERED: TOPI200T7 PO (14:27)
[2020-02-18] MEDS ORDERED: TIZA4CAP6 PO (14:27)
[2020-02-18] MEDS ORDERED: LITH300C PO (14:27)
== END 2019-12-06 11:15 | disposition home or self-care (01) ==
LOC: M INFU 10:02
PROVIDERS: ATTEND Internal Medicine Gastroenterology
DX: K50.90 Crohn's disease, unspecified, without complications (principal); Z88.0 Allergy status to penicillin; Z88.8 Allergy status to other drugs, medicaments and biological substances
CPT/HCPCS: 96365; J3380

== ENCOUNTER 2020-01-31 10:00 | Outpatient (CLI) | payer OTHER ==
[~2020-01-31 10:00] MED LIST changes: +LISI-538 PO; -LISI20TA33 PO; +VEDOLIZUMAB 300MG VIAL (ENTYVIO) (J3380 PER 1MG) ONE
[2020-02-18] MEDS ORDERED: TOPI200T7 PO (14:27)
[2020-02-18] MEDS ORDERED: TIZA4CAP6 PO (14:27)
[2020-02-18] MEDS ORDERED: TRAZ-252 PO (14:27)
[2020-02-18] MEDS ORDERED: LITH300C PO (14:27)
== END 2020-01-31 11:30 | disposition home or self-care (01) ==
LOC: M INFU 10:00
PROVIDERS: ATTEND Internal Medicine Gastroenterology
DX: K50.90 Crohn's disease, unspecified, without complications (principal)
CPT/HCPCS: 96365; J3380

== ENCOUNTER → 2020-02-14 | Outpatient (CLI) | payer OTHER ==
[~2020-02-14] MED LIST changes: +PRAZ2CAP PO; +RITA5TAB PO; +TIZA4CAP6 PO; +TOPI200T7 PO; +TRAZ-252 PO; -VEDOLIZUMAB 300MG VIAL (ENTYVIO) (J3380 PER 1MG) ONE
--- NOTE | 2020-03-12 14:58 | ECGEPIP ---
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
== END ==
LOC: M EKG 15:25
PROVIDERS: ATTEND Anesthesiology
DX: Z01.818 Encounter for other preprocedural examination (principal)

== ENCOUNTER → 2020-02-14 | Outpatient (CLI) | payer OTHER | LOC: M LABSMTC 13:26 | PROVIDERS: ATTEND Anesthesiology | DX: Z01.818 Encounter for other preprocedural examination (principal); Z11.59 Encounter for screening for other viral diseases | CPT/HCPCS: 93005; C9803 ==

== ENCOUNTER → 2020-02-18 | Outpatient (REF) | payer OTHER | LOC: M LAB REF 08:33 | PROVIDERS: ATTEND Internal Medicine Gastroenterology | DX: R19.7 Diarrhea, unspecified (principal) ==

== ENCOUNTER 2020-02-19 09:13 | Day surgery (SDC) | payer OTHER ==
[~2020-02-19] VITALS: Ht 157.5 cm; Wt 102.9 kg
[~2020-02-19 09:13] MED LIST changes: +LIDOCAINE 1% MDV 20ML VIAL SQ PRN; -PRAZ2CAP PO; -RITA5TAB PO
[2020-02-19] MEDS ORDERED: BUPIVACAINE HCL 0.25% 10ML VIAL As Ordered ONE (09:41)
[2020-02-19] MEDS ORDERED: LR 1,000 ML IV ONE (09:45)
[2020-02-19 10:20] LABS: HEMATOCRIT 42.4 % (36.0-47.0); HEMOGLOBIN 13.3 g/dl (12.0-15.5); MEAN CORPUSCULAR HEMOGLOBIN 27.9 pg (27.0-33.0); MEAN CORPUSCULAR HGB CONC 31.4 g/dl (32.0-36.5); MEAN CORPUSCULAR VOLUME 89.1 fl (80.0-96.0); PLATELET COUNT, AUTOMATED 264 10^3/uL (150-450); RED BLOOD COUNT 4.76 10^6/uL (4.00-5.40); WHITE BLOOD COUNT 13.3 10^3/uL (4.0-10.0)
[2020-02-19] MEDS ORDERED: LIDOCAINE 2% 100MG/5ML SDV (FOR ANES.) As Ordered ONE (11:20)
[2020-02-19] MEDS ORDERED: ONDANSETRON 4MG/2ML VIAL As Ordered ONE (11:20)
[2020-02-19] MEDS ORDERED: MIDAZOLAM INJ 2MG/2ML VIAL (J2250 PER 1MG) As Ordered ONE (11:20)
[2020-02-19] MEDS ORDERED: SUGAMMADEX SODIUM 500 MG/5 ML VIAL (BRIDION) As Ordered ONE (11:20)
[2020-02-19] MEDS ORDERED: KETOROLAC 60MG 2ML VIAL As Ordered ONE (11:20)
[2020-02-19] MEDS ORDERED: HYDROmorphone HCL 2 MG/ML 1ML VIAL (J1170) As Ordered ONE (11:20)
[2020-02-19] MEDS ORDERED: ROCURONIUM BROMIDE 50 MG/5 ML VIAL As Ordered ONE (11:20)
[2020-02-19] MEDS ORDERED: fentaNYL 100 MCG/2 ML INJECTION (J3010) As Ordered ONE (11:20)
[2020-02-19] MEDS ORDERED: propofoL 200 MG/20 ML VIAL As Ordered ONE (11:20)
[2020-02-19] MEDS ORDERED: dexameTHASONE 4 MG/ML 1ML VIAL (J1100 PER 1MG) As Ordered ONE (11:20)
[2020-02-19] MEDS ORDERED: ACETAMINOPHEN 1000MG 100ML IV BTL (OFIRMEV) (J0131 PER 10MG) As Ordered ONE (11:26)
[2020-02-19] MEDS ORDERED: LR 1,000 ML IV SCH (12:30)
[2020-02-19] MEDS ORDERED: HYDROMORPHONE HCL 0.5 MG/ 0.5 ML SYRINGE (J1170 PER 1) IV PRN (12:30)
[2020-02-19] MEDS ORDERED: ONDANSETRON 4MG/2ML VIAL IV PRN (12:30)
[2020-02-19] MEDS ORDERED: PERCOCET 5MG/325MG TAB PO PRN (12:30)
[2020-02-19] MEDS ORDERED: fentaNYL 100 MCG/2 ML INJECTION (J3010) IV PRN (12:30)
[2020-02-19] MEDS ORDERED: oxyCODONE 5MG TAB PO PRN (12:30)
[2020-02-19 13:32] VITALS: BP 118/68
--- NOTE | 2020-04-02 10:46 | RO ---
DATE OF OPERATION: 02/19/2020 PREOPERATIVE DIAGNOSIS: Undesired fertility. POSTOPERATIVE DIAGNOSIS: Undesired fertility. PROCEDURE: Laparoscopic bilateral salpingectomy. SURGEON: Bronson Schreiber MD ANESTHESIA: General endotracheal. ESTIMATED BLOOD LOSS: 10 cc. URINE OUTPUT: Not assessed. FINDINGS: Normal uterus, fallopian tubes, and ovaries. Adhesions of the right to the right pelvic side wall, mild omental adhesions to the anterior abdominal wall. DESCRIPTION OF PROCEDURE: The patient was taken to the operating room where general endotracheal anesthesia was induced. She was prepped and draped in sterile fashion in the dorsolithotomy position. A sponge stick was placed in the vagina to use as a manipulator. A periumbilical incision was made with the scalpel. A Veress needle was placed through this incision while tenting up the skin of the abdomen. Intraabdominal location of the Veress needle was assessed with the use of a saline-filled syringe. A pneumoperitoneum was created. The Veress needle was removed. A 5-mm trocar using LUMI MaskiPort was inserted through this incision. A 5-mm suprapubic port was placed under direct visualization. Grasping instruments were used to elevate the fallopian tubes. Broad ligament attachments to the fallopian tubes were coagulated and incised. The tubes were excised near their origins. Both tubes were removed through the suprapubic port. Omental adhesions to the anterior abdominal wall were taken down sharply and easily with LigaSure. All instruments were removed. The pneumoperitoneum was released. The skin was closed with 4-0 Monocryl subcuticular sutures. Sponge, instrument, and needle counts were correct. [facility]
== END 2020-02-19 13:35 | disposition home or self-care (01) ==
LOC: M SDC 09:13
PROVIDERS: ATTEND Specialist
DX: Z30.2 Encounter for sterilization (principal); K21.9 Gastro-esophageal reflux disease without esophagitis; F43.10 Post-traumatic stress disorder, unspecified; F41.9 Anxiety disorder, unspecified; F32.9 Major depressive disorder, single episode, unspecified; I10 Essential (primary) hypertension; G43.909 Migraine, unspecified, not intractable, without status migrainosus; Z79.899 Other long term (current) drug therapy
CPT/HCPCS: 58661; 81025; 85027; 88302; J0131; J1100; J1170; J1885; J2250; J2405; J3010

== ENCOUNTER 2020-03-27 10:10 | Outpatient (CLI) | payer OTHER ==
[~2020-03-27] VITALS: Ht 157.5 cm; Wt 103.8 kg
[~2020-03-27 10:10] MED LIST changes: -LIDOCAINE 1% MDV 20ML VIAL SQ PRN
[2020-03-27 10:22] VITALS: BP 140/89
[2020-03-27] MEDS: VEDOLIZUMAB 300 MG in NS 250 ML IV ONE (10:47)
[2020-03-27] MEDS ORDERED: CLON1TAB8 PO (11:10)
[2020-03-27] MEDS ORDERED: RITA5TAB PO (11:12)
[2020-03-27] MEDS ORDERED: PRAZ2CAP PO (11:15)
[2020-03-27 11:27] VITALS: BP 136/84
== END 2020-03-27 11:35 | disposition home or self-care (01) ==
LOC: M INFU 10:10
PROVIDERS: ATTEND Internal Medicine Gastroenterology
DX: K50.90 Crohn's disease, unspecified, without complications (principal)
CPT/HCPCS: 96365; J3380

== ENCOUNTER 2020-05-26 10:02 | Outpatient (CLI) | payer OTHER ==
[~2020-05-26] VITALS: Ht 157.5 cm; Wt 103.8 kg
[~2020-05-26 10:02] MED LIST changes: +PRAZ2CAP PO; +RITA5TAB PO; +VEDOLIZUMAB 300 MG in NS 250 ML IV ONE
[2020-05-26 10:05] VITALS: BP 141/76
[2020-05-26 10:17] VITALS: BP 141/76
[2020-05-26 11:00] VITALS: BP 124/78
[2020-05-26 11:15] VITALS: BP 124/79
== END 2020-05-26 11:15 | disposition home or self-care (01) ==
LOC: M INFU 10:02
PROVIDERS: ATTEND Internal Medicine Gastroenterology
DX: K51.90 Ulcerative colitis, unspecified, without complications (principal); Z88.0 Allergy status to penicillin; Z88.1 Allergy status to other antibiotic agents; Z88.8 Allergy status to other drugs, medicaments and biological substances
CPT/HCPCS: 96365; J3380

== ENCOUNTER 2020-08-10 13:03 | Outpatient (CLI) | payer OTHER ==
[~2020-08-10] VITALS: Ht 157.5 cm; Wt 90.9 kg
[~2020-08-10 13:03] MED LIST changes: -LISI-538 PO; +LISI20TA33 PO
[2020-08-10 13:20] VITALS: BP 140/90
[2020-08-10] MEDS ORDERED: META1TAB22 PO (13:40)
[2020-08-10 14:40] VITALS: BP 146/63
== END 2020-08-10 14:40 | disposition home or self-care (01) ==
LOC: M INFU 13:03
PROVIDERS: ATTEND Internal Medicine Gastroenterology
DX: K50.90 Crohn's disease, unspecified, without complications (principal); Z88.0 Allergy status to penicillin; Z88.1 Allergy status to other antibiotic agents; Z88.8 Allergy status to other drugs, medicaments and biological substances
CPT/HCPCS: 96365; J3380

== ENCOUNTER 2020-10-05 11:38 | Outpatient (CLI) | payer OTHER ==
[~2020-10-05] VITALS: Ht 157.5 cm; Wt 88.6 kg
[~2020-10-05 11:38] MED LIST changes: +VEDOLIZUMAB 300 MG in NS 250 ML IV ONE
[2020-10-05 12:07] VITALS: BP 125/77
[2020-10-05 12:55] VITALS: BP 135/86
== END 2020-10-05 13:10 | disposition home or self-care (01) ==
LOC: M INFU 11:38
PROVIDERS: ATTEND Internal Medicine Gastroenterology
DX: K50.90 Crohn's disease, unspecified, without complications (principal); Z88.0 Allergy status to penicillin; Z88.1 Allergy status to other antibiotic agents; Z88.8 Allergy status to other drugs, medicaments and biological substances
CPT/HCPCS: 96365; J3380

== ENCOUNTER → 2020-10-05 | Outpatient (CLI) | payer OTHER ==
[~2020-10-05] MED LIST changes: -LABE100T36 PO; +LABE100T5 PO; +META1TAB22 PO; -VEDOLIZUMAB 300 MG in NS 250 ML IV ONE
[2020-10-05 17:02] LABS: HIV 1&2 SCREEN CENTAUR NEGATIVE (NEGATIVE)
[2020-10-08 15:07] LABS: HSV TYPE I IgG SPECIFIC <0.91 index (0.00-0.90); HSV TYPE I IgM AB <1:10 titer (<1:10); HSV TYPE II IgG SPECIFIC <0.91 index (0.00-0.90); HSV TYPE II IgM ABY <1:10 titer (<1:10)
== END ==
LOC: M PLALAB 14:17
PROVIDERS: ATTEND Family Medicine
DX: Z11.3 Encounter for screening for infections with a predominantly sexual mode of transmission (principal); N76.0 Acute vaginitis

== ENCOUNTER 2020-11-22 04:53 | Emergency (ER) | payer OTHER ==
[~2020-11-22] VITALS: Ht 157.5 cm; Wt 86.4 kg
[~2020-11-22 04:53] MED LIST changes: -VEDOLIZUMAB 300 MG in NS 250 ML IV ONE
[2020-11-22] MEDS ORDERED: RIME75TA PO (05:02)
[2020-11-22 05:56] LABS: HCG, SERUM QUALITATIVE NEGATIVE (NEGATIVE)
[2020-11-22] MEDS ORDERED: diphenhydrAMINE 50MG/ML VIAL (J1200) IV STA (06:03)
[2020-11-22] MEDS ORDERED: KETOROLAC 30 MG/ML 1ML VIAL IV ONE (06:05)
[2020-11-22] MEDS ORDERED: NS 1,000 ML IV ONE (06:05)
[2020-11-22] MEDS ORDERED: METOCLOPRAMIDE INJ 10MG/2ML VIAL (J2765 PER 1) IV ONE (06:05)
--- NOTE | 2020-11-22 06:38 | REPVR ---
PROCEDURE INFORMATION: Exam: CT Head Without Contrast Exam date and time: 11/22/2020 6:15 AM Age: 35 years old Clinical indication: Pain; Headache TECHNIQUE: Imaging protocol: Computed tomography of the head without contrast. Radiation optimization: All CT scans at this facility use at least one of these dose optimization techniques: automated exposure control; mA and/or kV adjustment per patient size (includes targeted exams where dose is matched to clinical indication); or iterative reconstruction. COMPARISON: No relevant prior studies available. FINDINGS: Brain: Normal. No hemorrhage. Unremarkable white matter. No mass effect. Cerebral ventricles: No ventriculomegaly. Paranasal sinuses: Visualized sinuses are unremarkable. No fluid levels. Mastoid air cells: Visualized mastoid air cells are well aerated. Bones/joints: No acute fracture. Soft tissues: Unremarkable. IMPRESSION: No acute intracranial abnormality. Electronically signed by: Jona Magana On 11/22/2020 06:38:06 AM
[2020-11-22 08:00] VITALS: BP 137/78
== END 2020-11-22 08:42 | disposition home or self-care (01) ==
LOC: M ED 04:53
DX: G43.909 Migraine, unspecified, not intractable, without status migrainosus (principal); I10 Essential (primary) hypertension; F33.9 Major depressive disorder, recurrent, unspecified; E03.9 Hypothyroidism, unspecified; K50.90 Crohn's disease, unspecified, without complications; Z79.899 Other long term (current) drug therapy; Z79.890 Hormone replacement therapy; Z88.0 Allergy status to penicillin; Z88.1 Allergy status to other antibiotic agents; Z88.8 Allergy status to other drugs, medicaments and biological substances; F17.210 Nicotine dependence, cigarettes, uncomplicated
CPT/HCPCS: 70450; 84703; 96361; 96374; 96375; 99284; J1200; J1885; J2765

== ENCOUNTER 2020-11-30 11:53 | Outpatient (CLI) | payer OTHER ==
[~2020-11-30] VITALS: Ht 157.5 cm; Wt 88.6 kg
[~2020-11-30 11:53] MED LIST changes: +RIME75TA PO; +VEDOLIZUMAB 300 MG in NS 250 ML IV ONE
[2020-11-30 12:15] VITALS: BP 123/75
[2020-11-30 13:30] VITALS: BP 107/64
== END 2020-11-30 13:30 | disposition home or self-care (01) ==
LOC: M INFU 11:53
PROVIDERS: ATTEND Internal Medicine Gastroenterology
DX: K50.90 Crohn's disease, unspecified, without complications (principal); Z88.0 Allergy status to penicillin; Z88.1 Allergy status to other antibiotic agents
CPT/HCPCS: 96365; J3380

== ENCOUNTER → 2020-12-02 | Outpatient (CLI) | payer OTHER ==
[~2020-12-02] MED LIST changes: -VEDOLIZUMAB 300 MG in NS 250 ML IV ONE
[2020-12-02 18:16] LABS: ALBUMIN 3.4 GM/DL (3.2-5.2); ALT/SGPT 16 U/L (12-78); BILIRUBIN,TOTAL 0.2 MG/DL (0.2-1.0); BLOOD UREA NITROGEN 10 MG/DL (7-18); CALCIUM LEVEL 9.2 MG/DL (8.5-10.1); CARBON DIOXIDE LEVEL 21 MEQ/L (21-32); CHLORIDE LEVEL 112 MEQ/L (98-107); CREATININE FOR GFR 1.08 MG/DL (0.55-1.30); GLOMERULAR FILTRATION RATE > 60.0 (>60); GLUCOSE, FASTING 97 MG/DL (70-100); SODIUM LEVEL 142 MEQ/L (136-145)
[2020-12-02 18:18] LABS: BASO # 0.1 10^3/uL (0.0-0.2); BASO % 0.5 % (0.0-1.0); EOS # 0.2 10^3/uL (0.0-0.5); EOS % 2.3 % (0.0-3.0); HEMATOCRIT 41.5 % (36.0-47.0); LYMPH # 3.2 10^3/uL (1.5-5.0); LYMPH % 33.3 % (24.0-44.0); MEAN CORPUSCULAR HEMOGLOBIN 27.6 pg (27.0-33.0); MEAN CORPUSCULAR HGB CONC 31.3 g/dl (32.0-36.5); MEAN CORPUSCULAR VOLUME 88.1 fl (80.0-96.0); MONO # 0.5 10^3/uL (0.0-0.8); MONO % 5.6 % (2.0-8.0); NEUTROPHILS # 5.6 10^3/uL (1.5-8.5); NEUTROPHILS % 58.2 % (36.0-66.0); PLATELET COUNT, AUTOMATED 199 10^3/uL (150-450); RED BLOOD COUNT 4.71 10^6/uL (4.00-5.40); WHITE BLOOD COUNT 9.7 10^3/uL (4.0-10.0)
== END ==
LOC: M LAB 16:41
PROVIDERS: ATTEND Physician Assistant
DX: M54.5 Low back pain (principal)

== ENCOUNTER → 2020-12-02 | Outpatient (REF) | payer OTHER | LOC: M LAB REF 18:06 | PROVIDERS: ATTEND Physician Assistant | DX: M54.5 Low back pain (principal) ==

== ENCOUNTER → 2020-12-04 | Outpatient (CLI) | payer OTHER ==
--- NOTE | 2020-12-04 10:44 | REPVR ---
PROCEDURE INFORMATION: Exam: MR Lumbar Spine Without Contrast Exam date and time: 12/04/2020 8:57 AM Age: 35 years old Clinical indication: Low back pain; Additional info: Lbp TECHNIQUE: Imaging protocol: Multiplanar magnetic resonance images of the lumbar spine without intravenous contrast. COMPARISON: MRI-Spine, L.S. without con 08/26/2019 6:30 PM FINDINGS: Vertebrae: Unremarkable vertebral bodies and discs of the lumbar spine. The lumbar spine alignment is normal. Note is made of moderate epidural lipomatosis in the lumbosacral anterior spinal canal, best seen on image 7 of series 2. Spinal cord: Normal signal in the distal thoracic cord and conus medullaris. No cord compression. L1-L2: No significant disc disease. No significant spinal canal stenosis. No neural foraminal stenosis. L2-L3: No significant disc disease. No significant spinal canal stenosis. No neural foraminal stenosis. Small bilateral posterior facet joint effusions are present. L3-L4: No significant disc disease. No significant spinal canal stenosis. No neural foraminal stenosis. Small bilateral posterior facet joint effusions are present. L4-L5: No significant disc disease. No significant spinal canal stenosis. No neural foraminal stenosis. L5-S1: No significant disc disease. No significant spinal canal stenosis. No neural foraminal stenosis. Soft tissues: Unremarkable prevertebral and posterior paraspinal soft tissues. IMPRESSION: 1. The lumbar spine alignment and disc interspaces are normal. 2. No significant spinal canal or neuroforaminal stenosis. 3. Small bilateral posterior facet joint effusions are present at L2/L3 and L3/L4. 4. Incidental note is made of moderate epidural lipomatosis in the lumbosacral anterior spinal canal, best seen on image 7 of series 2. Electronically signed by: Enmanuel Mackey On 12/04/2020 10:44:01 AM
== END ==
LOC: M PLARAD 08:00
PROVIDERS: ATTEND Physician Assistant
DX: M54.5 Low back pain (principal)

== ENCOUNTER 2021-01-27 15:41 | Outpatient (CLI) | payer OTHER ==
[~2021-01-27] VITALS: Ht 157.5 cm; Wt 88.6 kg
[~2021-01-27 15:41] MED LIST changes: +VEDOLIZUMAB 300 MG in NS 250 ML IV ONE
[2021-01-27 15:54] VITALS: BP 103/56
[2021-01-27 16:49] VITALS: BP 116/69
== END 2021-01-27 16:50 | disposition home or self-care (01) ==
LOC: M INFU 15:41
PROVIDERS: ATTEND Internal Medicine Gastroenterology
DX: K50.90 Crohn's disease, unspecified, without complications (principal); Z88.0 Allergy status to penicillin; Z88.1 Allergy status to other antibiotic agents
CPT/HCPCS: 96365; J3380

== ENCOUNTER 2021-03-22 11:50 | Outpatient (CLI) | payer OTHER ==
[~2021-03-22] VITALS: Ht 157.5 cm; Wt 88.6 kg
[2021-03-22 11:55] VITALS: BP 114/71
[2021-03-22 13:00] VITALS: BP 120/72
== END 2021-03-22 13:15 | disposition home or self-care (01) ==
LOC: M INFU 11:50
PROVIDERS: ATTEND Internal Medicine Gastroenterology
DX: K50.90 Crohn's disease, unspecified, without complications (principal); Z88.0 Allergy status to penicillin; Z88.1 Allergy status to other antibiotic agents; Z88.8 Allergy status to other drugs, medicaments and biological substances
CPT/HCPCS: 96365; J3380

== ENCOUNTER → 2021-05-04 | Outpatient (REF) | payer OTHER ==
[~2021-05-04] MED LIST changes: -CYMB60CA3 PO; +CYMB60CA4 PO; -VEDOLIZUMAB 300 MG in NS 250 ML IV ONE
== END ==
LOC: M LAB REF 19:30
PROVIDERS: ATTEND Family Medicine
DX: J06.9 Acute upper respiratory infection, unspecified (principal); J02.9 Acute pharyngitis, unspecified

== ENCOUNTER 2021-06-14 11:37 | Outpatient (CLI) | payer OTHER ==
[~2021-06-14] VITALS: Ht 157.5 cm; Wt 88.6 kg
[2021-06-14 11:30] VITALS: BP 141/88
[~2021-06-14 11:37] MED LIST changes: +VEDOLIZUMAB 300 MG in NS 250 ML IV ONE
[2021-06-14 13:30] VITALS: BP 154/86
== END 2021-06-14 13:30 | disposition home or self-care (01) ==
LOC: M INFU 11:37
PROVIDERS: ATTEND Internal Medicine Gastroenterology
DX: K50.90 Crohn's disease, unspecified, without complications (principal); Z88.0 Allergy status to penicillin; Z88.8 Allergy status to other drugs, medicaments and biological substances
CPT/HCPCS: 96365; J3380

== ENCOUNTER 2021-08-04 13:58 | Outpatient (CLI) | payer OTHER, BC ==
[~2021-08-04] VITALS: Ht 157.5 cm; Wt 88.0 kg
[2021-08-04 15:13] VITALS: BP 143/89
== END 2021-08-04 15:10 | disposition home or self-care (01) ==
LOC: M INFU 13:58
PROVIDERS: ATTEND Internal Medicine Gastroenterology
DX: K50.90 Crohn's disease, unspecified, without complications (principal); Z88.0 Allergy status to penicillin; Z88.1 Allergy status to other antibiotic agents; Z88.8 Allergy status to other drugs, medicaments and biological substances
CPT/HCPCS: 96365; J3380

== ENCOUNTER 2021-09-15 14:55 | Outpatient (CLI) | payer OTHER ==
[~2021-09-15] VITALS: Ht 157.5 cm; Wt 84.8 kg
[~2021-09-15 14:55] MED LIST changes: +LABE200T3 PO; -LABE200T32 PO; -VEDOLIZUMAB 300 MG in NS 250 ML IV ONE
[2021-09-15] MEDS ORDERED: VEDOLIZUMAB 300 MG in NS 250 ML IV ONE (15:00)
[2021-09-15 16:08] VITALS: BP 126/84
== END 2021-09-15 16:08 | disposition home or self-care (01) ==
LOC: M INFU 14:55
PROVIDERS: ATTEND Internal Medicine Gastroenterology
DX: K50.90 Crohn's disease, unspecified, without complications (principal); Z88.0 Allergy status to penicillin; Z88.1 Allergy status to other antibiotic agents; Z88.8 Allergy status to other drugs, medicaments and biological substances
CPT/HCPCS: 96365; J3380

== ENCOUNTER 2021-10-27 12:04 | Outpatient (CLI) | payer OTHER, BC ==
[~2021-10-27] VITALS: Ht 157.5 cm; Wt 88.2 kg
[~2021-10-27 12:04] MED LIST changes: +VEDOLIZUMAB 300 MG in NS 250 ML IV ONE
[2021-10-27 12:06] VITALS: BP 127/79
[2021-10-27 13:15] VITALS: BP 136/84
== END 2021-10-27 13:15 | disposition home or self-care (01) ==
LOC: M INFU 12:04
PROVIDERS: ATTEND Internal Medicine Gastroenterology
DX: K50.80 Crohn's disease of both small and large intestine without complications (principal); Z88.0 Allergy status to penicillin; Z88.1 Allergy status to other antibiotic agents
CPT/HCPCS: 96365; J3380

== ENCOUNTER 2022-04-19 20:50 | Emergency (ER) | payer BC, OTHER ==
[~2022-04-19 20:50] MED LIST changes: -LABE100T5 PO; +LABE100T71 PO; -LABE200T3 PO; +LABE200T5 PO; -VEDOLIZUMAB 300 MG in NS 250 ML IV ONE
[2022-04-19] MEDS ORDERED: METOCLOPRAMIDE INJ 10MG/2ML VIAL (J2765 PER 1) IV ONE (22:00)
[2022-04-19] MEDS ORDERED: diphenhydrAMINE 50MG/ML VIAL (J1200) IV ONE (22:00)
[2022-04-19] MEDS ORDERED: KETOROLAC 30 MG/ML 1ML VIAL IV ONE (22:00)
[2022-04-19 22:20] LABS: HEMATOCRIT 39.7 % (36.0-47.0); HEMOGLOBIN 12.9 g/dl (12.0-15.5); MEAN CORPUSCULAR HEMOGLOBIN 27.3 pg (27.0-33.0); MEAN CORPUSCULAR HGB CONC 32.5 g/dl (32.0-36.5); MEAN CORPUSCULAR VOLUME 84.1 fl (80.0-96.0); PLATELET COUNT, AUTOMATED 249 10^3/uL (150-450); RED BLOOD COUNT 4.72 10^6/uL (4.00-5.40); WHITE BLOOD COUNT 12.4 10^3/uL (4.0-10.0)
[2022-04-19 22:34] LABS: BLOOD UREA NITROGEN 13 MG/DL (7-18); CALCIUM LEVEL 9.2 MG/DL (8.5-10.1); CARBON DIOXIDE LEVEL 20 MEQ/L (21-32); CHLORIDE LEVEL 109 MEQ/L (98-107); CREATININE FOR GFR 1.03 MG/DL (0.55-1.30); GLOMERULAR FILTRATION RATE > 60.0 (>60); GLUCOSE, FASTING 133 MG/DL (70-100); LITHIUM LEVEL < 0.20 MEQ/L (0.60-1.20); POTASSIUM SERUM 3.6 MEQ/L (3.5-5.1); SODIUM LEVEL 138 MEQ/L (136-145)
[2022-04-19] MEDS ORDERED: ACETAMINOPHEN TAB 650MG DOSE (2X325MG) PO ONE (23:35)
[2022-04-20 00:40] VITALS: BP 128/88
== END 2022-04-20 00:42 | disposition home or self-care (01) ==
LOC: M ED 20:50 → EDBD 20:50 → M ED 04-20 00:42
DX: G43.909 Migraine, unspecified, not intractable, without status migrainosus (principal); I10 Essential (primary) hypertension; E78.5 Hyperlipidemia, unspecified; F90.9 Attention-deficit hyperactivity disorder, unspecified type; K50.90 Crohn's disease, unspecified, without complications; F31.9 Bipolar disorder, unspecified; M54.9 Dorsalgia, unspecified; Z79.899 Other long term (current) drug therapy; Z88.0 Allergy status to penicillin; Z88.8 Allergy status to other drugs, medicaments and biological substances
CPT/HCPCS: 70450; 80048; 80178; 85027; 96374; 96375; 99284; J1200; J1885; J2765

== ENCOUNTER → 2022-07-14 | Outpatient (CLI) | payer BC, OTHER ==
[~2022-07-14] VITALS: Ht 157.5 cm; Wt 78.6 kg
[~2022-07-14] MED LIST changes: +VEDOLIZUMAB 300 MG in NS 250 ML IV ONE
[2022-07-14 15:00] VITALS: BP 165/88
[2022-07-14 16:00] VITALS: BP 172/90
== END ==
LOC: M INFU 15:00
PROVIDERS: ATTEND Internal Medicine Gastroenterology
DX: K50.90 Crohn's disease, unspecified, without complications (principal); Z88.0 Allergy status to penicillin; Z88.8 Allergy status to other drugs, medicaments and biological substances
CPT/HCPCS: 96365; J3380

== ENCOUNTER 2022-07-28 14:45 | Outpatient (CLI) | payer BC ==
[~2022-07-28] VITALS: Ht 157.5 cm; Wt 82.8 kg
[~2022-07-28 14:45] MED LIST changes: -VEDOLIZUMAB 300 MG in NS 250 ML IV ONE
[2022-07-28] MEDS ORDERED: VEDOLIZUMAB 300 MG in NS 250 ML IV ONE (15:00)
[2022-07-28 15:08] VITALS: BP 133/86
[2022-07-28 16:00] VITALS: BP 151/86
== END 2022-07-28 16:00 | disposition home or self-care (01) ==
LOC: M INFU 14:45
PROVIDERS: ATTEND Internal Medicine Gastroenterology
DX: K50.90 Crohn's disease, unspecified, without complications (principal); Z88.0 Allergy status to penicillin; Z88.8 Allergy status to other drugs, medicaments and biological substances
CPT/HCPCS: 96365; J3380

== ENCOUNTER → 2022-07-31 | Outpatient (CLI) | payer BC, OTHER ==
[~2022-07-31] MED LIST changes: +AMPH1CAP14 PO; +D-AMPHETAMINE PO; +ETON68IM SC; +RIZA10TA58 PO
== END ==
LOC: M LABSMTC 10:18
PROVIDERS: ATTEND Anesthesiology
DX: Z01.812 Encounter for preprocedural laboratory examination (principal); Z11.52 Encounter for screening for COVID-19

== ENCOUNTER 2022-08-04 07:33 | Day surgery (SDC) | payer BC ==
[~2022-08-04] VITALS: Ht 157.5 cm; Wt 78.8 kg
[~2022-08-04 07:33] MED LIST changes: +NS 1,000 ML IV ONE
[2022-08-04] MEDS ORDERED: BUDE0.254 INH (07:57)
[2022-08-04] MEDS ORDERED: LIDOCAINE 2% 100MG/5ML SDV (FOR ANES.) As Ordered ONE (08:44)
[2022-08-04] MEDS ORDERED: propofoL 200 MG/20 ML VIAL As Ordered ONE (08:44)
[2022-08-04] MEDS ORDERED: GLYCOPYRROLATE INJ 0.2 MG/ML 2 ML VIAL As Ordered ONE (08:44)
[2022-08-04 09:20] VITALS: BP 137/65
== END 2022-08-04 09:42 | disposition home or self-care (01) ==
LOC: M OPP 07:33
PROVIDERS: ATTEND Internal Medicine Gastroenterology
DX: Z12.11 Encounter for screening for malignant neoplasm of colon (principal); Z86.010 Personal history of colon polyps; K51.50 Left sided colitis without complications; K63.89 Other specified diseases of intestine; I10 Essential (primary) hypertension; E06.3 Autoimmune thyroiditis; M79.7 Fibromyalgia; F17.200 Nicotine dependence, unspecified, uncomplicated; G43.909 Migraine, unspecified, not intractable, without status migrainosus; Z79.3 Long term (current) use of hormonal contraceptives; Z79.60 Long term (current) use of unspecified immunomodulators and immunosuppressants; Z79.890 Hormone replacement therapy; Z79.899 Other long term (current) drug therapy; Z88.1 Allergy status to other antibiotic agents; Z88.2 Allergy status to sulfonamides; Z88.8 Allergy status to other drugs, medicaments and biological substances; Z83.79 Family history of other diseases of the digestive system

== ENCOUNTER → 2022-08-29 | Outpatient (CLI) | payer BC ==
[~2022-08-29] VITALS: Ht 157.5 cm; Wt 82.8 kg
[~2022-08-29] MED LIST changes: +BUDE0.254 INH; -NS 1,000 ML IV ONE; +VEDOLIZUMAB 300 MG in NS 250 ML IV ONE
[2022-08-29 17:44] VITALS: BP 155/77
== END ==
LOC: M INFU 16:35
PROVIDERS: ATTEND Internal Medicine Gastroenterology
DX: K50.90 Crohn's disease, unspecified, without complications (principal); Z88.0 Allergy status to penicillin; Z88.8 Allergy status to other drugs, medicaments and biological substances
CPT/HCPCS: 96365; J3380